=== PATIENT | female | born 1960 | race Caucasian/White ===

== ENCOUNTER 2020-04-01 12:54 | Outpatient (CLI) | payer OTHER, SELFPAY | END 2020-04-01 12:55 | disposition home or self-care (01) | LOC: ANHAUDIO 12:55 | PROVIDERS: PCP Internal Medicine Gastroenterology; Visit Provider Internal Medicine | DX: H90.3 Sensorineural hearing loss, bilateral (principal) | CPT/HCPCS: 92557; 92567 ==

== ENCOUNTER 2020-04-29 12:53 | Outpatient (RCR) | payer OTHER, SELFPAY | END 2020-04-29 23:59 | disposition home or self-care (01) | LOC: ANHAUDIO 12:53 | PROVIDERS: PCP Internal Medicine Gastroenterology; Visit Provider Internal Medicine Gastroenterology | DX: Z46.1 Encounter for fitting and adjustment of hearing aid (principal) | CPT/HCPCS: V5160; V5260 ==

== ENCOUNTER 2020-11-06 14:54 | Outpatient (CLI) | payer OTHER, SELFPAY ==
--- NOTE | ~2020-11-06 | DEXA_ITS ---
Bone Density Report Name: Selena Chen Age: 60 Sex: Female Ethnicity: White Date of : 1960 Indication: postmenopausal; prior fracture; hysterectomy; Referring Provider: CRISTALCLAUDIO Study: Bone densitometry was performed. Exam Date: November 06, 2020 Accession number: [id number] Bone Density: Region BMD T-score Z-score Classification AP Spine (L1-L4) 0.801 -2.2 -0.7 Osteopenia Femoral Neck (Left) 0.560 -2.6 -1.2 Osteoporosis Total Hip (Left) 0.669 -2.2 -1.2 Osteopenia Total Hip Bilateral Avg 0.671 -2.2 -1.2 Osteopenia Femoral Neck (Right) 0.622 -2.0 -0.7 Osteopenia Total Hip (Right) 0.672 -2.2 -1.1 Osteopenia World Health Organization criteria for BMD impression classify patients as: Normal (T-score at or above -1.0), Osteopenia (T-score between -1.0 and -2.5), or Osteoporosis (T-score at or below -2.5). 10-year Fracture Risk: FRAX not reported because: Some T-score for Spine Total or Hip Total or Femoral Neck at or below -2.5 Clinical Information Provided by Patient: Has had a low trauma fracture Smokes Has used the following medications: Vitamin D, Calcium Has the following medical conditions: Hysterectomy Patient maximum height was 63 Menopause Age: 48 No regular weight bearing exercise Drinks caffeinated beverages Onset of menses at age 11 Number of children 1 Impression: The patient has established osteoporosis, based on the Left Femoral Neck T-score and the existence of a prior fracture. The patient has risk factors, including: smoking, previous fracture. Discussion: HIGH RISK OF FRACTURE. BONE DENSITY IS UNDESIRABLY LOW AT ONE OR MORE SKELETAL SITES, CONSISTENT WITH POSTMENOPAUSAL OSTEOPOROSIS. This patient's lowest T-score, in a patient who has previously fractured, meets the World Health Organization's (WHO) criteria for severe osteoporosis. In untreated patients, the risk of osteoporotic fracture increases approximately two-fold for each 1.0 SD decrease in T-score. Low bone density is not the only risk factor for fracture; also consider factors such as patient's age, frailty or poor health, risk of falling, risk of injury, previous osteoporotic fracture, family history of osteoporosis, cigarette smoking, low body weight, etc. Not everyone with low bone mineral density has osteoporosis; osteomalacia and other metabolic bone disorders should also be considered. Patients who have osteoporosis should be evaluated for specific diseases and conditions (secondary causes) that may cause or contribute to bone loss. The [place] [employer] Endocrinologists (AACE) and National Osteoporosis Foundation (NOF) recommend pharmacologic intervention for all postmenopausal women whose T-score is in this range. The patient should follow a healthful lifestyle (good nutrition with adequate calcium and vitamin
== END 2020-11-06 14:55 | disposition home or self-care (01) ==
LOC: ANHIMG 14:55
PROVIDERS: PCP Internal Medicine Gastroenterology; Visit Provider Internal Medicine Gastroenterology
DX: M25.551 Pain in right hip (principal); M85.88 Other specified disorders of bone density and structure, other site; M81.0 Age-related osteoporosis without current pathological fracture; M85.852 Other specified disorders of bone density and structure, left thigh; M85.851 Other specified disorders of bone density and structure, right thigh
CPT/HCPCS: 77080

== ENCOUNTER 2020-12-12 09:18 | Outpatient (CLI) | payer OTHER, SELFPAY ==
--- NOTE | 2020-12-12 11:15 | NEURO_ITS ---
Impression: # Complains of generalized weakness and numbness. # No Carpal Tunnel Syndrome or ulnar neuropathy. # Bilateral peroneal neuropathy. # Generalized decreased motor unit potentials without fibs, fasciculation or myotonia. Nerve Conduction Studies Anti Sensory Summary Table Stim Site NR Peak (ms) P-T Amp (?V) Site1 Site2 Delta-P (ms) Dist (cm) Cheng (m/s) Left Median Anti Sensory (2-3nd Digit) Wrist 3.0 76.6 Wrist 2-3nd Digit 3.0 14.0 47 Wrist 3.0 69.4 Wrist 2-3nd Digit 3.0 14.0 47 Right Median Anti Sensory (2-3nd Digit) Wrist 3.1 50.5 Wrist 2-3nd Digit 3.1 14.0 45 Wrist 3.1 61.3 Wrist 2-3nd Digit 3.1 14.0 45 Left Radial Anti Sensory (Base 1st Digit) Wrist 2.5 12.5 Wrist Base 1st Digit 2.5 0.0 Right Radial Anti Sensory (Base 1st Digit) Wrist 3.0 11.3 Wrist Base 1st Digit 3.0 0.0 Left Sup Fibular Anti Sensory (Ant Lat Mall) 14 cm 2.7 13.0 14 cm Ant Lat Mall 2.7 16.0 59 Right Sup Fibular Anti Sensory (Ant Lat Mall) 14 cm 3.0 5.8 14 cm Ant Lat Mall 3.0 16.0 53 Left Sural Anti Sensory (Lat Mall) Calf 3.6 15.9 Calf Lat Mall 3.6 16.0 44 Right Sural Anti Sensory (Lat Mall) Calf 3.9 38.5 Calf Lat Mall 3.9 16.0 41 Left Ulnar Anti Sensory (5th Digit) Wrist 2.8 44.0 Wrist 5th Digit 2.8 14.0 50 Right Ulnar Anti Sensory (5th Digit) Wrist 2.8 52.1 Wrist 5th Digit 2.8 14.0 50 Motor Summary Table Stim Site NR Onset (ms) O-P Amp (mV) Site1 Site2 Delta-0 (ms) Dist (cm) Cheng (m/s) Left Median Motor (Abd Poll Brev) Wrist 3.2 3.0 Elbow Wrist 4.4 26.0 59 Elbow 7.6 3.1 Right Median Motor (Abd Poll Brev) Wrist 3.4 1.7 Elbow Wrist 4.3 26.0 60 Elbow 7.7 2.7 Left Peroneal Motor (Vastus Med) NO RESPONSE Ankle NR Popit Ankle 0.0 Popit 12.3 1.0 Right Peroneal Motor (Vastus Med) NO RESPONSE Ankle NR Popit Ankle 0.0 Popit 11.6 1.1 Left Tibial Motor (Abd Gaston Brev) Ankle 5.5 6.1 Knee Ankle 8.3 39.0 47 Knee 13.8 4.3 Right Tibial Motor (Abd Gaston Brev) Ankle 5.4 7.2 Knee Ankle 8.7 39.0 45 Knee 14.1 3.0 Left Ulnar Motor (Abd Dig Minimi) Wrist 2.3 6.1 A Elbow Wrist 4.6 28.0 61 A Elbow 6.9 5.8 Right Ulnar Motor (Abd Dig Minimi) Wrist 2.4 5.7 A Elbow Wrist 4.8 27.0 56 A Elbow 7.2 4.6 F Wave Studies NR F-Lat (ms) L-R F-Lat (ms) Left Median (Mrkrs) (Abd Poll Brev) 26.33 0.45 Right Median (Mrkrs) (Abd Poll Brev) 26.78 0.45 Left Peroneal (Mrkrs) (EDB) NO RESPONSE NR Right Peroneal (Mrkrs) (EDB) DISPERSED RESPONSE NR Left Tibial (Mrkrs) (Abd Hallucis) 55.01 0.84 Right Tibial (Mrkrs) (Abd Hallucis) 55.85 0.84 Left Ulnar (Mrkrs) (Abd Dig Min) 27.43 0.41 Right Ulnar (Mrkrs) (Abd Dig Min) 27.84 0.41 EMG Side Muscle Nerve Root Ins Act Fibs Amp Dur Recrt Comment Right 1stDorInt Ulnar C8-T1 Nml Nml Nml Nml Reduced Right Ext Indicis Radial (Post Int) C7-8 Nml Nml Nml Nml Reduced Right Ext Digitorum Radial (Post Int) C7-8 Nml Nml Nml Nml Reduced Right BrachioRad Radial C5-6 Nml Nml Nml Nml Reduced Right PronatorTeres Median C6-7 Nml Nml Nml Nml Reduced Right Abd Poll Brev Median C8-T1 Nml Nml Nml Nml Red
== END 2020-12-12 09:19 | disposition home or self-care (01) ==
PROVIDERS: PCP Internal Medicine Gastroenterology; Visit Provider Psychiatry & Neurology Neurology
DX: R20.2 Paresthesia of skin (principal)
CPT/HCPCS: 95886; 95913

== ENCOUNTER 2021-02-13 13:50 | Outpatient (CLI) | payer OTHER, SELFPAY ==
[2021-02-13 14:15] LABS: Hematocrit 36.8 % (37.0-47.0); Hemoglobin 12.1 g/dL (12.0-15.0); Mean Corpuscular HGB Conc 32.9 g/dl (32-36); Mean Corpuscular Hemoglobin 35.2 pg (26-34); Mean Platelet Volume 8.2 fl (7.4-10.4); Platelet Count Result 383 k/mm3 (150-375); Red Blood Count 3.44 M/mm3 (4.2-5.4); Red Cell Distribution Width 11.1 % (11.5-14.5); White Blood Count 7.4 K/mm3 (4.5-10.0)
[2021-02-13 14:26] LABS: Alanine Aminotransferase 12 U/L (4-35); Albumin Level 4.5 g/dL (3.5-5.1); Alkaline Phosphatase 89 U/L (38-126); Anion Gap 8 mmol/L (8-16); Aspartate Amino Transferase 35 U/L (14-36); Bilirubin,Total 0.2 mg/dL (0.2-1.3); Blood Urea Nitrogen 16 mg/dL (7-17); Calcium 9.7 mg/dL (8.4-10.2); Carbon Dioxide 29 mmol/L (22-30); Chloride 102 mmol/L (98-107); Estimated Glomerular Filt Rate > 60; Glucose 85 mg/dL (65-110); Potassium 4.7 mmol/L (3.4-5.0); Sodium 139 mmol/L (137-145)
== END 2021-02-13 13:51 | disposition home or self-care (01) ==
PROVIDERS: PCP Internal Medicine Gastroenterology; Visit Provider Psychiatry & Neurology Neurology
DX: G62.9 Polyneuropathy, unspecified (principal)
CPT/HCPCS: 36415; 80053; 85027

== ENCOUNTER 2021-02-27 13:00 | Outpatient (RCR) | payer OTHER, SELFPAY | END 2021-02-27 23:59 | disposition home or self-care (01) | LOC: ANHAUDIO 13:00 | PROVIDERS: PCP Internal Medicine Gastroenterology; Visit Provider Internal Medicine Gastroenterology | DX: Z46.1 Encounter for fitting and adjustment of hearing aid (principal) | CPT/HCPCS: 99199 ==

== ENCOUNTER 2021-03-06 02:19 | Day surgery (SDC) | payer OTHER, SELFPAY ==
[2021-02-20 14:57] VITALS: BMI 19.8
--- NOTE | 2021-03-05 14:55 | PM.HPGS ---
History of Present Illness History of Present Illness Consent: Risks, benefits, and alternatives have been discussed and questions answered. Patient agrees to proceed with procedure. Chief complaint: Constipation K59.00 Narrative: Selena Chen is a 60 year old female here for colon cancer screeningShe suffers from chronic constipation. She has abdominal pain unless her colon feels completely empty. Review of Systems Review of Systems: All systems reviewed & are unremarkable except as noted in HPI and below PMFSH Social History Social History Smoking packs per day: 2 Smoking cigarettes per day: 40.0 Years smoked: 50 Smoking pack-years: 100.00 Smoking status: Current every day smoker Tobacco type: cigarettes Alcohol intake: never Drinks per week: 2 Alcohol use details: BEER Substance use type: marijuana Living arrangements: with friend(s) Spiritual care concerns: No Meds Home Medications and Allergies Home Medications Medication Instructions Recorded Confirmed Type alendronate 70 mg tablet 70 mg PO WEEKLY 02/18/21 02/27/21 History baclofen 10 mg tablet 10 mg PO TID tablet 02/18/21 02/27/21 History buspirone 7.5 mg tablet 7.5 mg PO BID 02/18/21 02/27/21 History diclofenac potassium 50 mg tablet 50 mg PO BID 02/18/21 02/27/21 History dicyclomine 10 mg capsule 10 mg PO TID PRN 02/18/21 02/27/21 History famotidine 20 mg tablet 20 mg PO BID tablet 02/18/21 02/27/21 History trazodone 100 mg tablet 200 mg PO QHS PRN 02/18/21 02/27/21 History clorazepate dipotassium 7.5 mg 7.5 mg PO QHS #30 tablet MDD 02/24/21 02/27/21 Rx tablet insomnia pregabalin 100 mg capsule 100 mg PO BID #60 cap 03/03/21 Rx Allergies Allergy/AdvReac Type Severity Reaction Status Date / Time CYCLOBENZAPRINE HCL Allergy Mild Unknown Uncoded 03/06/21 06:56 Exam Resp: Auscultation: clear to auscultation bilaterally Cardio: Rate: regular rate Rhythm: regular rhythm GI: GI Palp: Yes Soft to palpation and No Tenderness to palpation present (GI) Assessment and Plan Assessment and plan (1) Colon cancer screening: Code(s): Z12.11 - Encounter for screening for malignant neoplasm of colon Status: Acute Assessment and Plan: Colonoscopy with possible biopsy or polypectomy or cautery or injection of substances.
[2021-03-06 06:59] VITALS: BP 100/61; PULSE 89; RESP 22; TEMP 36.1; O2SAT 93
[2021-03-06] MEDS: LACTATED RINGERS 1,000 ML 150 ML IV CONT (07:14)
--- NOTE | 2021-03-06 07:50 | WPDANESEPPF ---
Anes - Initial Pre Proc Eval Procedure: Operation Date: 03/06/21 08:00 Proposed Procedures p Colonoscopy - Cortes Randolph MD Date/Time: 03/06/21 07:50 Surgeon: Cortes Randolph MD Pre Op Diagnosis: Constipation K59.00 Patient Data Age: 60 Gender: F Height: 1.57 m Weight: 48.4 kg Last Vital Signs Temp 97.0 F L 03/06/21 06:59 Pulse 89 03/06/21 06:59 Resp 22 H 03/06/21 06:59 BP 100/61 03/06/21 06:59 Pulse Ox 93 03/06/21 06:59 Allergies Allergy/AdvReac Type Severity Reaction Status Date / Time CYCLOBENZAPRINE HCL Allergy Mild Unknown Uncoded 03/06/21 06:56 Home Medications Medication Instructions Recorded Confirmed Type alendronate 70 mg tablet 70 mg PO WEEKLY 02/18/21 02/27/21 History baclofen 10 mg tablet 10 mg PO TID tablet 02/18/21 02/27/21 History buspirone 7.5 mg tablet 7.5 mg PO BID 02/18/21 02/27/21 History diclofenac potassium 50 mg tablet 50 mg PO BID 02/18/21 02/27/21 History dicyclomine 10 mg capsule 10 mg PO TID PRN 02/18/21 02/27/21 History famotidine 20 mg tablet 20 mg PO BID tablet 02/18/21 02/27/21 History trazodone 100 mg tablet 200 mg PO QHS PRN 02/18/21 02/27/21 History clorazepate dipotassium 7.5 mg 7.5 mg PO QHS #30 tablet MDD 02/24/21 02/27/21 Rx tablet insomnia pregabalin 100 mg capsule 100 mg PO BID #60 cap 03/03/21 Rx Patient hx anesthesia problems: none Family hx anesthesia problems: none PMFSH Past Medical History Medical History (Updated 03/06/21 @ 07:43 by Yung Woodruff MD) Anxiety Arthritis Dementia GERD (gastroesophageal reflux disease) Social History Social History Smoking packs per day: 2 Smoking cigarettes per day: 40.0 Years smoked: 50 Smoking pack-years: 100.00 Smoking status: Current every day smoker Tobacco type: cigarettes Alcohol intake: never Drinks per week: 2 Alcohol use details: BEER Substance use type: marijuana Living arrangements: with friend(s) Spiritual care concerns: No Anes - Eval Final PreProcedure Day of Procedure 03/06/21 07:50 Patient weight: normal Heart: regular rate and rhythm Lungs: clear to auscultation Airway: Mallampati scale class II Neurological: alert and oriented Last oral intake: >/= 8 hours ASA classification: III Emergent: no Anesthetic plan: proceed Anesthesia type and monitoring: general GIVS and standard monitoring Informed Consent: The patient's anesthetic plan and its attendant risks and benefits were discussed with the patient/family/POA. Questions were solicited and answers provided to the satisfaction of the patient/family/POA.
[2021-03-06 08:23] VITALS: BP 105/57; BP 106/62; PULSE 85; RESP 16; RESP 30; O2SAT 89; O2SAT 98
[2021-03-06 08:33] VITALS: BP 122/71; PULSE 89; RESP 20; O2SAT 93
--- NOTE | 2021-03-06 12:53 | SUR.PHASEII ---
0845 pt states having a panic attack after procedure and request medication from anesthesiologist-dr. de la rosa refused request and dialog was used to calm patient---
== END 2021-03-06 09:05 | disposition home or self-care (01) ==
PROVIDERS: PCP Internal Medicine Gastroenterology; Visit Provider Internal Medicine Gastroenterology
PROC: 0DJD8ZZ Inspection of Lower Intestinal Tract, Via Natural or Artificial Opening Endoscopic (ICD-10-PCS; CPT 45378; principal; 2021-03-06 08:00)
DX: Z12.11 Encounter for screening for malignant neoplasm of colon (principal); K59.09 Other constipation; F17.210 Nicotine dependence, cigarettes, uncomplicated
CPT/HCPCS: 45378; J2704; J7120

== ENCOUNTER 2021-03-08 10:36 | Inpatient (IN) | payer OTHER, SELFPAY ==
[2021-03-08] VITALS (7 sets, daily range): BP systolic 108–160; BP diastolic 76–99; PULSE 72–91; RESP 16–24; TEMP 36.4–37.6; O2SAT 91–100; BMI 19.5
--- NOTE | ~2021-03-08 | XR_ITS ---
EXAMINATION: XR foot LT min 3V DATE: 03/08/2021 11:17 INDICATION: Left foot trauma TECHNIQUE: Dorsoplantar, two oblique and lateral views of the left foot were obtained. COMPARISON: 12/17/2009 FINDINGS: Alignment is normal. Nondisplaced fractures at the distal necks of the third and fourth metatarsals. Alignment remains essentially anatomic. Chronic subtle flattening of the head of the second metatarsa l consistent with osteonecrosis/Freiberg's infraction. Mild polyarticular osteoarthritis at the 50 ta rsal metatarsal, metatarsophalangeal and interphalangeal joints. Small heterotopic ossicle near the t ip of the lateral malleolus likely sequela of chronic lateral ankle sprain. Moderate-sized Achilles c alcaneal spur. IMPRESSION: 1. Nondisplaced extra articular fractures at the necks of the right third and fourth metatarsals. Reviewed, dictated and finalized at location A. IMPRESSION: 1. Nondisplaced extra articular fractures at the necks of the right third and f ourth metatarsals.
--- NOTE | ~2021-03-08 | CT_ITS ---
EXAMINATION: CTA chest PE protocol DATE: 03/08/2021 12:00 INDICATION: Chest pain with shortness of breath and syncope. TECHNIQUE: Computed tomography (CT) pulmonary angiogram of the chest was performed with 100 mL Omnipa que-350 intravenous contrast. Additional 3D reconstructions utilizing coronal maximum intensity proje ction (MIP) were performed. Automated exposure control and iterative reconstruction technique were em ployed. The dose-length product was 143.82 mGy-cm. COMPARISON: None FINDINGS: Excellent contrast opacification of the pulmonary arteries. There is mild streak artifact from dense contrast in the superior vena cava and right atrium. Mild scattered respiratory motion artifact which does not significantly limit evaluation. No pulmonary motion. Moderate emphysema. Diffuse septal yan e thickening and patchy groundglass opacities throughout both lungs. Calcified nodule at the azygos e sophageal recess of the right lower lobe consistent with old granulomatous disease. No pleural effusi on or pneumothorax. Heart size is normal. No pericardial effusion. Atherosclerotic coronary artery ca lcification. Thoracic aorta is normal in caliber with no dissection. Enlargement of the central pulmo nary arteries consistent with pulmonary arterial hypertension. Likely reactive mild mediastinal and b ilateral hilar lymphadenopathy, right greater than left. Visualized upper abdomen is unremarkable. Ch ronic mild anterior wedging at T12 and chronic mild superior endplate compression fractures at T3 and T4. Mild to moderate anterior wedging at T7, T8 and T10, each with sclerosis underlying the superior endplate suggesting relatively recent compression fractures. IMPRESSION: 1. No pulmonary aneurysm. 2. Diffuse bilateral lung disease throughout both lungs with appearance favoring pulmonary edema over pneumonia with differential including COVID pneumonia. 3. Moderate emphysema. 4. Enlargement of the central pulmonary arteries consistent with pulmonary arterial hypertension. 5. Likely reactive mediastinal and bilateral hilar lymphadenopathy. 6. Relatively recent-appearing T7, T8 and T10 compression fractures with mild to moderate anterior ve rtebral body height loss. Reviewed, dictated and finalized at location A. IMPRESSION: 1. No pulmonary aneurysm. 2. Diffuse bilateral lung disease throughout both lungs with appearance favorin g pulmonary edema over pneumonia with differential including COVID pneumonia. 3. Moderate emphysema. 4. Enlargement of the central pulmonary arteries consistent with pulmonary ekaterina rial hypertension. 5. Likely reactive mediastinal and bilateral hilar lymphadenopathy. 6. Relatively recent-appearing T7, T8 and T10 compression fractures with mild t o moderate anterior vertebral body height loss.
--- NOTE | ~2021-03-08 | CT_ITS ---
EXAMINATION: CT brain wo con DATE: 03/10/2021 19:06 INDICATION: Confusion. TECHNIQUE: Computed tomography (CT) of the head was performed without intravenous contrast. The mA wa s adjusted according to patient size. Iterative reconstruction technique was employed. The dose-lengt h product was 605.33 mGy-cm. COMPARISON: Brain MRI 06/07/2019 FINDINGS: There is no intracranial hemorrhage, acute infarction, or abnormal intracranial mass lesion . There are scattered areas of low attenuation in the cerebral white matter, which is within normal l imits for the patient's age. The ventricles are normal in size. The orbits are normal. There is mild mucosal thickening in the paranasal sinuses. The mastoid air cells are normal. IMPRESSION: 1. Normal aging brain. Reviewed, dictated and finalized at location A. IMPRESSION: 1. Normal aging brain.
--- NOTE | ~2021-03-08 | US_ITS ---
EXAMINATION: US thyroid EXAM DATE: 03/11/2021 14:27 INDICATION: Neck pain. TECHNIQUE: Multiple grayscale and Doppler images of the thyroid were obtained (by a technologist who performed the scan) and subsequently reviewed. Individual nodules and recommendations may be reporte d in accordance with TI-RADS system as designated by the 2017 ACR White Paper TI-RADS committee. The re is no prior study for comparison. FINDINGS: The right thyroid lobe measures 1.2 x 4.6 x 1.3 cm, the left measuring 1.3 x 4.0 x 1.0 cm. There is h omogeneous thyroid echogenicity. No suspicious focal nodules identified. No other abnormality. IMPRESSION: 1. Unremarkable thyroid ultrasound exam. Reviewed, dictated and finalized at location A.
--- NOTE | ~2021-03-08 | MR_ITS ---
EXAMINATION: MR brain/brain stem wo con DATE: 03/11/2021 08:51 INDICATION: Altered mental status. Unresponsive. TECHNIQUE: Magnetic resonance imaging (MRI) of the brain and brainstem was performed without intraven ous contrast. Sequences included sagittal and axial T1-weighted FSE, axial diffusion-weighted FS EPI, axial T2*-weighted GRE, axial T2-weighted FLAIR Propeller, and axial T2-weighted Propeller. Apparent diffusion coefficient (ADC) maps were created. COMPARISON: Head CT 03/10/2021, brain MRI 06/07/2019 FINDINGS: There are scattered areas of nonspecific increased T2-weighted signal intensity in the cere bral white matter. There is no intracranial hemorrhage, acute infarction, or abnormal intracranial ma ss lesion. The ventricles are normal in size. There is mild mucosal thickening IMPRESSION: 1. Mild nonspecific cerebral white matter disease, which likely represents chronic small vessel ische narcisa disease, worsened from 06/07/2019. Reviewed, dictated and finalized at location A. IMPRESSION: 1. Mild nonspecific cerebral white matter disease, which likely represents oncology technician nir small vessel ischemic disease, worsened from 06/07/2019.
--- NOTE | 2021-03-08 10:42 | ECG_ITS ---
Measurements Intervals [place] Rate: 88 P: 60 [place]: 152 QRS: 43 QRSD: 90 T: 47 QT: 339 QTc: 411 Interpretive Statements SINUS RHYTHM BASELINE WANDER- I, III, AVL, V1, V3 NORMAL ECG Electronically Signed On 03-08-2021 17:13:41 CDT by Abel Null D.O.
[2021-03-08] MEDS: SODIUM CHLORIDE 0.9% IV 1,000 ML 999 ML IV CONT (10:58)
[2021-03-08 10:59] LABS: Basophils Absolute Auto 0.1 K/mm3 (0.0-0.1); Basophils Percent Auto 0.7 % (0.2-1.2); Eosinophils Absolute Auto 0.4 K/mm3 (0-0.3); Eosinophils Percent Auto 3.5 % (0-4.4); Hematocrit 36.3 % (37.0-47.0); Hemoglobin 12.2 g/dL (12.0-15.0); Immature Granulocyte Absolute 0.11 K/mm3 (0.00-0.031); Lymphocytes Absolute Auto 1.55 K/mm3 (0.9-3.2); Lymphocytes Percent Auto 14.6 % (18.3-44.2); Mean Corpuscular HGB Conc 33.6 g/dl (32-36); Mean Corpuscular Hemoglobin 35.5 pg (26-34); Mean Corpuscular Volume 105.5 fl (80-100); Mean Platelet Volume 9.4 fl (7.4-10.4); Monocytes Absolute Auto 0.5 K/mm3 (0.1-0.6); Monocytes Percent Auto 4.8 % (2.6-8.5); Neutrophils Percent Auto 75.4 % (45.5-73.1); Platelet Count Result 399 k/mm3 (150-375); Red Blood Count 3.44 M/mm3 (4.2-5.4); Red Cell Distribution Width 11.3 % (11.5-14.5); White Blood Count 10.6 K/mm3 (4.5-10.0)
[2021-03-08 11:05] LABS: Anion Gap 9 mmol/L (8-16); Blood Urea Nitrogen 15 mg/dL (7-17); Calcium 9.5 mg/dL (8.4-10.2); Carbon Dioxide 24 mmol/L (22-30); Chloride 105 mmol/L (98-107); Estimated CRCL calculation 48 ml/min; Estimated Glomerular Filt Rate > 60; Glucose 111 mg/dL (65-110); Potassium 4.5 mmol/L (3.4-5.0); Sodium 138 mmol/L (137-145)
[2021-03-08 11:12] LABS: INR 0.9; Partial Thromboplastin Time 29.7 SECONDS (22.3-36.8); Prothrombin Time 12.4 Seconds (11.1-14.7)
[2021-03-08 11:34] LABS: NT Pro B Type Natriuretic Pept 1620 pg/mL (5-100)
[2021-03-08 14:16] LABS: EDCOVIDSCREEN Negative (Negative)
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
--- NOTE | 2021-03-08 15:15 | PC.NURSE ---
pt up at nurses station stating i want to fucking leave . dr kern and myself at bedside to speak with patient. pt anxious stating we arent spending enough time with her and that she wants to go home. made aware of plan of care for pt. discussed risks of signing ama. pt o2 sat 77% ra. agreeable to admission at this time.
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
[2021-03-08] MEDS: MORPHINE SULFATE (*CRX) 4 MG/ML INJ 2 MG IV PUSH (17:04)
--- NOTE | 2021-03-08 19:08 | ADMGEN ---
This patient, Selena Chen, was admitted to [facility] Surg Room [id number]. Report given per VLADIMIR Mckinney. Patient/family oriented to hospital policies and general routines including ID bracelet, bed and alarms, visiting hours, pain management, procedures, bathroom and other care routines, personal items, smoking policy, room service/diet, and visiting hours. Information on how to activate the Rapid Response Team has been discussed. Patient/Family are encouraged to report perceived risks to care and to ask questions if they do not understand what they are told or what they should do.
[2021-03-08] MEDS: CLORAZEPATE DIPOTASSIUM (*CRX) 7.5 MG TABLET PO (22:11)
[2021-03-08] MEDS: ACETAMINOPHEN 325 MG TABLET 650 MG PO (22:11)
[2021-03-08] MEDS: PREGABALIN (*CRX) 50 MG CAPSULE 100 MG PO (22:11)
[2021-03-08] MEDS: BACLOFEN 10 MG TABLET PO (22:12)
[2021-03-08] MEDS: traZODone HCL 50 MG TABLET 200 MG PO (22:12)
[2021-03-09] VITALS (11 sets, daily range): BP systolic 90–167; BP diastolic 50–84; PULSE 71–88; RESP 12–22; TEMP 36.4–37.8; O2SAT 93–99
[2021-03-09] MEDS: FUROSEMIDE INJ 40 MG/4 ML VIAL 20 MG IV PUSH (00:07)
[2021-03-09] MEDS: oxyCODONE HCL (*CRX) 5 MG TAB IR PO ×3 (02:55→14:49)
[2021-03-09] MEDS: ACETAMINOPHEN 325 MG TABLET 650 MG PO ×2 (02:58→10:06)
[2021-03-09 07:09] LABS: Hematocrit 33.4 % (37.0-47.0); Hemoglobin 10.9 g/dL (12.0-15.0); Mean Corpuscular HGB Conc 32.6 g/dl (32-36); Mean Corpuscular Hemoglobin 34.5 pg (26-34); Mean Corpuscular Volume 105.7 fl (80-100); Mean Platelet Volume 9.3 fl (7.4-10.4); Platelet Count Result 402 k/mm3 (150-375); Red Blood Count 3.16 M/mm3 (4.2-5.4); White Blood Count 10.4 K/mm3 (4.5-10.0)
[2021-03-09 07:15] LABS: Alanine Aminotransferase 21 U/L (4-35); Albumin Level 3.8 g/dL (3.5-5.1); Alkaline Phosphatase 267 U/L (38-126); Anion Gap 5 mmol/L (8-16); Aspartate Amino Transferase 30 U/L (14-36); Bilirubin,Total 0.4 mg/dL (0.2-1.3); Blood Urea Nitrogen 12 mg/dL (7-17); Carbon Dioxide 26 mmol/L (22-30); Chloride 104 mmol/L (98-107); Estimated CRCL calculation 55 ml/min; Estimated Glomerular Filt Rate > 60; Glucose 93 mg/dL (65-110); Magnesium 1.9 mg/dL (1.6-2.3); Potassium 4.4 mmol/L (3.4-5.0); Sodium 135 mmol/L (137-145)
[2021-03-09 08:13] LABS: Iron 28 ug/dL (37-170)
[2021-03-09] MEDS: DICLOFENAC SOD 25 MG TABLET.EC 50 MG PO ×2 (08:18→17:16)
[2021-03-09] MEDS: ENOXAPARIN 30 MG/0.3 ML SYRINGE SUB-Q (08:18)
[2021-03-09] MEDS: FAMOTIDINE 20 MG TABLET PO ×2 (08:18→17:17)
[2021-03-09] MEDS: busPIRone HCL 2.5 MG TABLET PO ×2 (08:18→21:38)
[2021-03-09] MEDS: BACLOFEN 10 MG TABLET PO ×3 (08:18→17:16)
[2021-03-09] MEDS: busPIRone HCL 5 MG TABLET PO ×2 (08:18→21:38)
[2021-03-09 08:22] LABS: Folic Acid 8.3 ng/mL (2.76->20); Vitamin B12 > 1000.0 pg/mL (239-931)
[2021-03-09] MEDS: PREGABALIN (*CRX) 50 MG CAPSULE 100 MG PO ×2 (10:06→17:20)
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
[2021-03-09] MEDS: BISACODYL 5 MG TABLET EC PO (12:18)
[2021-03-09] MEDS: NICOTINE (*PBKC) 21 MG PATCH 1 PATCH TRANSDERM (14:50)
[2021-03-09 17:49] LABS: Glucose Point of Care 116 mg/dl (65-105)
[2021-03-09] MEDS: ACETAMINOPHEN 500 MG TABLET 1000 MG PO (21:37)
[2021-03-09] MEDS: oxyCODONE HCL (*CRX) 2.5 MG TAB IR PO (21:37)
[2021-03-09] MEDS: CLORAZEPATE DIPOTASSIUM (*CRX) 7.5 MG TABLET PO (21:37)
[2021-03-09] MEDS: SENNOSIDES 8.6 MG TABLET PO (21:38)
[2021-03-09] MEDS: traZODone HCL 50 MG TABLET 200 MG PO (21:38)
[2021-03-10] VITALS (10 sets, daily range): BP systolic 88–117; BP diastolic 50–70; PULSE 74–83; RESP 18–20; TEMP 35.8–37.1; O2SAT 90–95
[2021-03-10 03:44] LABS: SARS-CoV-2 RNA PCR Negative
[2021-03-10] MEDS: ACETAMINOPHEN 500 MG TABLET 1000 MG PO ×3 (05:25→21:30)
[2021-03-10] MEDS: PREGABALIN (*CRX) 50 MG CAPSULE 100 MG PO ×2 (09:05→17:15)
[2021-03-10] MEDS: oxyCODONE HCL (*CRX) 2.5 MG TAB IR PO (09:05)
[2021-03-10] MEDS: busPIRone HCL 2.5 MG TABLET PO (09:07)
[2021-03-10] MEDS: BACLOFEN 10 MG TABLET PO ×3 (09:07→17:06)
[2021-03-10] MEDS: DICLOFENAC SOD 25 MG TABLET.EC 50 MG PO ×2 (09:07→17:05)
[2021-03-10] MEDS: busPIRone HCL 5 MG TABLET PO (09:08)
[2021-03-10] MEDS: FAMOTIDINE 20 MG TABLET PO ×2 (09:08→17:05)
[2021-03-10] MEDS: NICOTINE (*PBKC) 21 MG PATCH 1 PATCH TRANSDERM (09:08)
[2021-03-10] MEDS: ENOXAPARIN 30 MG/0.3 ML SYRINGE SUB-Q (09:08)
[2021-03-10 10:12] LABS: Hematocrit 38.3 % (37.0-47.0); Hemoglobin 12.6 g/dL (12.0-15.0); Mean Corpuscular HGB Conc 32.9 g/dl (32-36); Mean Corpuscular Hemoglobin 34.5 pg (26-34); Mean Corpuscular Volume 104.9 fl (80-100); Mean Platelet Volume 9.5 fl (7.4-10.4); Platelet Count Result 522 k/mm3 (150-375); Red Blood Count 3.65 M/mm3 (4.2-5.4); Red Cell Distribution Width 10.9 % (11.5-14.5); White Blood Count 10.3 K/mm3 (4.5-10.0)
[2021-03-10 10:22] LABS: Anion Gap 7 mmol/L (8-16); Blood Urea Nitrogen 13 mg/dL (7-17); Calcium 9.8 mg/dL (8.4-10.2); Carbon Dioxide 31 mmol/L (22-30); Chloride 99 mmol/L (98-107); Estimated CRCL calculation 48 ml/min; Estimated Glomerular Filt Rate > 60; Glucose 113 mg/dL (65-110); Potassium 4.4 mmol/L (3.4-5.0); Sodium 137 mmol/L (137-145)
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
[2021-03-10 18:40] LABS: Glucose Point of Care 232 mg/dl (65-105)
--- NOTE | 2021-03-10 19:40 | PC.NURSE ---
At 1215, PT & OT were working with pt when they yelled that pt was unresponsive and to call a rapid. Pt was quickly awakened with painful stimuli, returned to her bed, at bedside who ordered 5mg zyprexa. Pt BP was soft so I held zyprexa and the lasix he also ordered. Pt had no further problems. At 1840, pt appeared to go unresponsive again. Multiple painful stimuli tried. Pt not responding. Vitals solid at 115/63, heart rate 83, pulse ox 97 on room air, resps of 16. Blood sugar at 232. Called rapid response again. Called Emanuel, but no response initially. Called Gregory as he had also responded to first response. Pt had multiple attempts of arousing, but eyes would continue to roll back in head. Pt finally aroused at 1856. Stat CT brain c/o contrast ordered, along with cancellation of all anti-anxiety and pain medications. Pt to be transferred to IMU 206. Pt returned from CT, A/O x 4 and stated she had called her boyfriend with an update. Gave report to night RN to work on transfer
--- NOTE | 2021-03-10 20:50 | PC.NURSE ---
Report given to CARMENZA GILBERT and patient transfered to IMU, all belongings inplace, tele monitor on, alert and orientated at this time.
--- NOTE | 2021-03-10 21:14 | PC.NURSE ---
Report received at 1949 from VLADIMIR Flores at 1949. All questions answered and plan of care reviewed. Patient to go to IMU bed 206 bed 2.
--- NOTE | 2021-03-10 21:15 | PC.NURSE ---
Patient arrived to IMU bed 206-2 at 2100. Patient transferred by bed. All belongings brought with patient to room. Patient oriented to policies and procedures.
[2021-03-10] MEDS: SENNOSIDES 8.6 MG TABLET PO (21:30)
[2021-03-10] MEDS: DOCUSATE SODIUM 100 MG CAPSULE PO (21:30)
[2021-03-10] MEDS: CLORAZEPATE DIPOTASSIUM (*CRX) 3.75 MG TABLET 7.5 MG PO (22:00)
--- NOTE | 2021-03-10 22:40 | ECHO_ITS ---
Patient Info Name: Selena Chen Age: 60 years : 1960 Gender: Female Ht: 62 in Wt: 106 lbs BSA: 1.45 m2 HR: 95 bpm BP: 111 / 70 mmHg Exam Date: 03/10/2021 10:54 AM Exam Location: [facility] Patient Status: Outpatient Admit Date: 03/08/2021 Staff Ordering Physician: Mitra Brush PA-C Cardiac Care Unit Nurse: Tom Liu RDCS, RT Attending Provider: Colby Holliday MD Referring Physician: Trudi CASTILLO; Exam Type: CA echo doppler color flow Study Info Indications J81.0 - Acute pulmonary edema Complete two-dimensional, color flow and Doppler transthoracic echocardiogram is performed. Strain analysis performed. Summary 1. Complete two-dimensional, color flow and Doppler transthoracic echocardiogram is performed. 2. Left ventricular chamber dimension is normal. 3. Left ventricular systolic function is normal, estimated at 60-65%. 4. The left ventricular diastolic function is grade I diastolic dysfunction. 5. E/e' 5 is not elevated. 6. Global longitudinal strain is abnormal at -15.3%. 7. There is moderate aortic valve sclerosis. 8. There is mild aortic valve regurgitation. 9. There is trace tricuspid valve regurgitation. Left Ventricle E/e' 5 is not elevated. Global longitudinal strain is abnormal at -15.3%. Left ventricular chamber dimension is normal. Left ventricular systolic function is normal, estimated at 60-65%. The left ventricular diastolic function is grade I diastolic dysfunction. Right Ventricle Right ventricular systolic function is normal and with normal TAPSE 2.0 cm.. Right ventricular chamber dimension is normal. Left Atria Left atrial chamber dimension is normal. Right Atria Right atrial chamber dimension is normal. Aortic Valve The aortic valve is trileaflet. There is moderate aortic valve sclerosis. There is no aortic valve stenosis. There is mild aortic valve regurgitation. Pulmonic Valve There is no pulmonic regurgitation. Mitral Valve There is no mitral valve stenosis. There is no mitral valve regurgitation. Tricuspid Valve There is trace tricuspid valve regurgitation. RVSP is not calculated due to an inadequate TR jet. Pericardium/Pleural There is no pericardial effusion. Inferior Vena Cava Normal inferior vena cava with >50% collapse upon inspiration consistent with normal right atrial pressure, 5 mmHg. Aorta The aortic root size at the sinus of Valsalva is normal. Left Ventricular Outflow Tract Name Value Normal LVOT 2D LVOT Diameter 2.0 cm LVOT Doppler LVOT Peak Gradient 3 mmHg LVOT Mean Gradient 2 mmHg LVOT VTI 15 cm LVOT VTI/AV VTI Ratio 0.8 LVOT Stroke Volume 45 ml LVOT CO 3.2 l/min LVOT CI 2.2 l/min/m2 Mitral Valve Name Value Normal
[2021-03-11] VITALS (16 sets, daily range): BP systolic 106–131; BP diastolic 48–80; PULSE 66–91; RESP 18–22; TEMP 36.1–36.7; O2SAT 95–97
[2021-03-11] MEDS: HALOPERIDOL LACTATE 5 MG/ML VIAL IM (00:22)
[2021-03-11] MEDS: LORazepam INJ (*CRX) 2 MG/ML VIAL 1 MG IM (00:59)
[2021-03-11] MEDS: diphenhydrAMINE HCl INJ 50 MG/ML VIAL 25 MG IV PUSH (01:00)
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
[2021-03-11] MEDS: ACETAMINOPHEN 500 MG TABLET 1000 MG PO ×3 (05:16→21:09)
[2021-03-11 06:04] LABS: Hematocrit 34.9 % (37.0-47.0); Hemoglobin 11.4 g/dL (12.0-15.0); Mean Corpuscular HGB Conc 32.7 g/dl (32-36); Mean Corpuscular Volume 104.2 fl (80-100); Mean Platelet Volume 9.4 fl (7.4-10.4); Platelet Count Result 485 k/mm3 (150-375); Red Blood Count 3.35 M/mm3 (4.2-5.4); Red Cell Distribution Width 10.7 % (11.5-14.5); White Blood Count 8.8 K/mm3 (4.5-10.0)
[2021-03-11 06:27] LABS: Anion Gap 7 mmol/L (8-16); Blood Urea Nitrogen 14 mg/dL (7-17); Calcium 9.3 mg/dL (8.4-10.2); Carbon Dioxide 28 mmol/L (22-30); Chloride 102 mmol/L (98-107); Estimated CRCL calculation 48 ml/min; Estimated Glomerular Filt Rate > 60; Glucose 112 mg/dL (65-110); Sodium 137 mmol/L (137-145)
[2021-03-11] MEDS: ENOXAPARIN 30 MG/0.3 ML SYRINGE SUB-Q (09:48)
[2021-03-11] MEDS: DICLOFENAC SOD 25 MG TABLET.EC 50 MG PO ×2 (09:49→17:35)
[2021-03-11] MEDS: NICOTINE (*PBKC) 21 MG PATCH 1 PATCH TRANSDERM (09:50)
[2021-03-11] MEDS: FUROSEMIDE INJ 40 MG/4 ML VIAL IV PUSH (09:50)
[2021-03-11] MEDS: DOCUSATE SODIUM 100 MG CAPSULE PO ×2 (09:50→21:08)
[2021-03-11] MEDS: FAMOTIDINE 20 MG TABLET PO ×2 (09:50→17:35)
[2021-03-11] MEDS: MORPHINE SULFATE (*CRX) 15 MG TAB IR PO ×2 (11:45→17:33)
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
--- NOTE | 2021-03-11 13:26 | PCOTNOTE ---
Addendum entered by Ayala Canales, OT 03/11/21 14:35: Pt. was re-assessed for OT after medical status change. Continue with plan of care as previously established. Original Note: Pt. classified as code purple in last 24 hours. Followed up with nurse regarding status, nurse reports pt. has returned to what she believes was state prior to change and should be safe to see for PT/OT at this time. Will follow-up with any changes.
[2021-03-11] MEDS: GABAPENTIN 300 MG CAPSULE PO ×2 (14:59→18:48)
[2021-03-11] MEDS: ARTIFICIAL TEARS OPHTH SOLN 15 ML BOTTLE 1 DROP EACH EYE (15:00)
[2021-03-11] MEDS: CLORAZEPATE DIPOTASSIUM (*CRX) 3.75 MG TABLET 7.5 MG PO (21:08)
[2021-03-11] MEDS: SENNOSIDES 8.6 MG TABLET PO (21:09)
[2021-03-12] VITALS (14 sets, daily range): BP systolic 92–130; BP diastolic 55–74; PULSE 65–93; RESP 18–20; TEMP 36.4–36.8; O2SAT 96–100
[2021-03-12] MEDS: MORPHINE SULFATE (*CRX) 15 MG TAB IR PO ×2 (03:01→09:53)
[2021-03-12 05:41] LABS: Alanine Aminotransferase 15 U/L (4-35); Alkaline Phosphatase 231 U/L (38-126); Anion Gap 6 mmol/L (8-16); Aspartate Amino Transferase 35 U/L (14-36); Bilirubin,Total 0.3 mg/dL (0.2-1.3); Blood Urea Nitrogen 20 mg/dL (7-17); Calcium 9.6 mg/dL (8.4-10.2); Carbon Dioxide 28 mmol/L (22-30); Chloride 99 mmol/L (98-107); Estimated CRCL calculation 36 ml/min; Estimated Glomerular Filt Rate 50; Glucose 102 mg/dL (65-110); Phosphorus 5.4 mg/dL (2.5-4.5); Potassium 4.7 mmol/L (3.4-5.0); Sodium 133 mmol/L (137-145)
[2021-03-12] MEDS: ACETAMINOPHEN 500 MG TABLET 1000 MG PO ×3 (05:57→21:20)
[2021-03-12 06:07] LABS: Basophils Absolute Auto 0.1 K/mm3 (0.0-0.1); Eosinophils Absolute Auto 0.5 K/mm3 (0-0.3); Eosinophils Percent Auto 5.6 % (0-4.4); Hematocrit 36.6 % (37.0-47.0); Hemoglobin 11.9 g/dL (12.0-15.0); Immature Granulocyte Absolute 0.32 K/mm3 (0.00-0.031); Immature Granulocyte Percent A 3.7 % (0-0.5); Lymphocytes Absolute Auto 2.34 K/mm3 (0.9-3.2); Lymphocytes Percent Auto 27.1 % (18.3-44.2); Mean Corpuscular HGB Conc 32.5 g/dl (32-36); Mean Corpuscular Hemoglobin 34.8 pg (26-34); Mean Platelet Volume 9.4 fl (7.4-10.4); Monocytes Absolute Auto 0.6 K/mm3 (0.1-0.6); Monocytes Percent Auto 6.5 % (2.6-8.5); Neutrophils Absolute Auto 4.8 K/mm3 (1.3-6.7); Neutrophils Percent Auto 56.1 % (45.5-73.1); Platelet Count Result 545 k/mm3 (150-375); Red Blood Count 3.42 M/mm3 (4.2-5.4); Red Cell Distribution Width 10.8 % (11.5-14.5); White Blood Count 8.6 K/mm3 (4.5-10.0)
[2021-03-12] MEDS: NICOTINE (*PBKC) 21 MG PATCH 1 PATCH TRANSDERM (08:36)
[2021-03-12] MEDS: FAMOTIDINE 20 MG TABLET PO ×2 (08:36→18:02)
[2021-03-12] MEDS: GABAPENTIN 300 MG CAPSULE PO ×3 (08:36→18:02)
[2021-03-12] MEDS: DICLOFENAC SOD 25 MG TABLET.EC 50 MG PO ×2 (08:36→18:01)
[2021-03-12] MEDS: ARTIFICIAL TEARS OPHTH SOLN 15 ML BOTTLE 1 DROP EACH EYE ×2 (08:36→21:18)
[2021-03-12] MEDS: DOCUSATE SODIUM 100 MG CAPSULE PO ×2 (08:36→21:19)
[2021-03-12] MEDS: FUROSEMIDE INJ 40 MG/4 ML VIAL IV PUSH (08:36)
[2021-03-12] MEDS: ENOXAPARIN 30 MG/0.3 ML SYRINGE SUB-Q (08:36)
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
--- NOTE | 2021-03-12 15:05 | WPDNEUROPN ---
Progress Note: A&P Additional Plan treatment will be continued as such Review of Systems Review of Systems: All systems reviewed & are unremarkable except as noted in HPI and below Exam Narrative: remains awake alert cooperative in no obvious acute distress complaining of the pain in her back where the wedge compression fracture of thoracic vertebra has been documented along with the T7 to treat 10 compression fracture but neurologically she remains awake alert cooperative his speech nor dysphasic no dysarthric cranial examination normal motor and sensory examination of the lower extremities normal reflexes symmetrical plantars downgoing Objective Data Vital Signs Vital Signs: Vital Signs - 24 hr 03/11/21 16:00 03/11/21 17:02 03/11/21 18:00 Temperature 36.1 C L Pulse Rate 80 72 83 Respiratory Rate 22 H Blood Pressure 131/70 Pulse Oximetry 95 03/11/21 20:00 03/11/21 21:32 03/11/21 23:43 Temperature 36.6 C 36.4 C Pulse Rate 68 70 91 Respiratory Rate 18 20 Blood Pressure 117/67 106/48 L Pulse Oximetry 97 97 03/12/21 00:00 03/12/21 02:00 03/12/21 04:00 Temperature 36.4 C Pulse Rate 68 72 65 Respiratory Rate 20 18 Blood Pressure 92/64 L Pulse Oximetry 97 99 03/12/21 06:00 03/12/21 08:00 03/12/21 08:23 Temperature 36.8 C Pulse Rate 72 81 68 Respiratory Rate 20 Blood Pressure 105/61 Pulse Oximetry 96 03/12/21 10:00 03/12/21 12:00 03/12/21 12:29 Temperature 36.4 C L Pulse Rate 70 68 74 Respiratory Rate 18 Blood Pressure 108/71 Pulse Oximetry 100 03/12/21 14:00 Temperature Pulse Rate 82 Respiratory Rate Blood Pressure Pulse Oximetry Intake/Output Intake/Output: Intake & Output 03/09/21 03/10/21 03/11/21 03/12/21 23:59 23:59 23:59 23:59 Intake Total 1630 1030 702 420 Output Total 1300 1225 Balance 1630 1035 -598 -805 Meds/Results Medications: Active Medications Generic Name Dose Route Start Last Admin Trade Name Freq PRN Reason Stop Dose Admin Acetaminophen 1,000 mg 03/09/21 22:00 03/12/21 14:04 Acetaminophen 500 Mg Tablet PO 1,000 mg Q8HR SILVINA Administration Albuterol 2 puff 03/08/21 22:40 Albuterol Sulfate (*Sp) Aerosol 1 Puff INHALATION QIDRT PRN Shortness Of Breath Artificial Tears 1 drop 03/11/21 13:37 03/12/21 08:36 Artificial Tears Ophth Soln 15 Ml Bottle EACH EYE 1 drop QID PRN Administration Dry Eye(s) Clorazepate Dipotassium 7.5 mg 03/10/21 21:00 03/11/21 21:08 Clorazepate Dipotassium (*Crx) 3.75 Mg Tablet PO 7.5 mg HS SILVINA Administration Diclofenac Sodium 50 mg 03/09/21 08:00 03/12/21 08:36 Diclofenac Sod 25 Mg Tablet.Ec PO 50 mg BIDWM SILVINA Administration Dicyclomine HCl 10 mg 03/08/21 21:16 Dicyclomine Hcl 10 Mg Capsule PO TID PRN Gastrointestinal Spasms Or Central Supply Worker Docusate Sodium 100 mg 03/10/21 21:00 03/12/21 08:36 Docusate Sodium 100 Mg Capsule PO 100 mg Q12HR SILVINA Administration Enoxaparin Sodium 30 mg 03/09/21 09:00 03/12/21 08:36 Enoxaparin 30 Mg/0.3 Ml Syringe SUB-Q 30 mg DAILY SILVINA Administration Famotidine 20 mg 03/09/21 09:00 03/12/21 08:36 Famotidine 20 Mg Tablet PO 20 mg BID SILVINA Administration Furosemide 40 mg 03/10/21 12:39 03/12/21 08:36 Furosemide Inj 40 Mg/4 Ml Vial IV PUSH 40 mg DAILY SILVINA Administration Gabapentin 300 mg 03/11/21 13:00 03/12/21 14:04 Gabapentin 300 Mg Capsule PO 300 mg TID SILVINA Administration Haloperidol Lactate 5 mg 03/11/21 13:45 Haloperidol Lactate 5 Mg/Ml Vial IM ONCE PRN Agitation Morphine Sulfate 15 mg 03/11/21 11:30 03/12/21 09:53 Morphine Sulfate (*Crx) 15 Mg Tab Ir PO 15 mg Q4H PRN Administration Pain Rated 7-10 Nicotine 1 patch 03/09/21 12:50 03/12/21 08:36 Nicotine (*Pbkc) 21 Mg Patch TRANSDERM 1 patch QAM SILVINA Administration Polyethylene Glycol 17 gm 03/10/21 12:36 Polyethylene Glycol 3350 1
[2021-03-12] MEDS: polyethylene glycoL 3350 17 GM POWD.PACK PO (18:00)
[2021-03-12] MEDS: SENNOSIDES 8.6 MG TABLET PO (21:19)
[2021-03-12] MEDS: CLORAZEPATE DIPOTASSIUM (*CRX) 3.75 MG TABLET 7.5 MG PO (21:20)
[2021-03-13] VITALS (7 sets, daily range): BP systolic 101–113; BP diastolic 55–73; PULSE 64–92; RESP 14–20; TEMP 36.1–36.5; O2SAT 95–98
[2021-03-13] MEDS: ACETAMINOPHEN 500 MG TABLET 1000 MG PO ×2 (05:37→14:02)
[2021-03-13 06:09] LABS: Basophils Absolute Auto 0.1 K/mm3 (0.0-0.1); Basophils Percent Auto 1.1 % (0.2-1.2); Eosinophils Absolute Auto 0.5 K/mm3 (0-0.3); Eosinophils Percent Auto 5.2 % (0-4.4); Hematocrit 38.8 % (37.0-47.0); Hemoglobin 12.8 g/dL (12.0-15.0); Immature Granulocyte Absolute 0.17 K/mm3 (0.00-0.031); Immature Granulocyte Percent A 1.8 % (0-0.5); Lymphocytes Percent Auto 17.9 % (18.3-44.2); Mean Corpuscular Hemoglobin 34.5 pg (26-34); Mean Corpuscular Volume 104.6 fl (80-100); Mean Platelet Volume 9.4 fl (7.4-10.4); Monocytes Absolute Auto 0.6 K/mm3 (0.1-0.6); Monocytes Percent Auto 6.2 % (2.6-8.5); Neutrophils Absolute Auto 6.4 K/mm3 (1.3-6.7); Neutrophils Percent Auto 67.8 % (45.5-73.1); Platelet Count Result 549 k/mm3 (150-375); Red Blood Count 3.71 M/mm3 (4.2-5.4); Red Cell Distribution Width 10.6 % (11.5-14.5); White Blood Count 9.5 K/mm3 (4.5-10.0)
[2021-03-13 06:57] LABS: Alanine Aminotransferase 18 U/L (4-35); Albumin Level 4.1 g/dL (3.5-5.1); Alkaline Phosphatase 273 U/L (38-126); Anion Gap 7 mmol/L (8-16); Aspartate Amino Transferase 48 U/L (14-36); Bilirubin,Total 0.4 mg/dL (0.2-1.3); Blood Urea Nitrogen 26 mg/dL (7-17); Calcium 9.8 mg/dL (8.4-10.2); Carbon Dioxide 27 mmol/L (22-30); Chloride 96 mmol/L (98-107); Estimated CRCL calculation 34 ml/min; Estimated Glomerular Filt Rate 46; Glucose 99 mg/dL (65-110); Magnesium 2.1 mg/dL (1.6-2.3); Phosphorus 6.5 mg/dL (2.5-4.5); Sodium 130 mmol/L (137-145)
[2021-03-13] MEDS: ENOXAPARIN 30 MG/0.3 ML SYRINGE SUB-Q (09:10)
[2021-03-13] MEDS: ARTIFICIAL TEARS OPHTH SOLN 15 ML BOTTLE 1 DROP EACH EYE (09:10)
[2021-03-13] MEDS: GABAPENTIN 300 MG CAPSULE PO ×2 (09:11→14:02)
[2021-03-13] MEDS: DICLOFENAC SOD 25 MG TABLET.EC 50 MG PO (09:11)
[2021-03-13] MEDS: DOCUSATE SODIUM 100 MG CAPSULE PO (09:11)
[2021-03-13] MEDS: NICOTINE (*PBKC) 21 MG PATCH 1 PATCH TRANSDERM (09:12)
[2021-03-13] MEDS: FUROSEMIDE INJ 40 MG/4 ML VIAL IV PUSH (09:12)
[2021-03-13] MEDS: FAMOTIDINE 20 MG TABLET PO (09:12)
--- NOTE | 2021-03-13 11:11 | PC.NURSE ---
Transfer received from IMU room 206. Patient oriented to the room.
--- NOTE | 2021-03-13 11:12 | PC.NURSE ---
This patient, Selena Chen, was transferred to [ 249 ] on 03/13/21 at 1105. Personal belongings sent with patient. Report given to [ VLADIMIR Lopes. ]. Appropriate documentation sent with patient.
[2021-03-13] MEDS: MORPHINE SULFATE (*CRX) 15 MG TAB IR PO (12:27)
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
--- NOTE | 2021-03-13 15:51 | PC.NURSE ---
On 03/13/21, the student, [Zulma ], provided care and completed [facility] documentation on this patient. I have reviewed the student's documentation and agree with the findings.
--- NOTE | 2021-03-13 16:35 | PC.NURSE ---
Patient receiving 48 holtor monitor and then discharging home. Patient given instructions.
--- NOTE | 2021-03-18 16:25 | WPDHOLTEREM ---
Holter/Event Monitor Holter/Event Monitor Date of procedure: 03/13/21 Holter/Event Procedure: 48 Hr Holter Monitor Indications: Syncope Conclusion: 1. 48 hour holter monitor on 03/13/21. 2. Underlying rhythm is sinus rhythm. HR range 54-126 bpm; average HR 81 bpm. 3. There are 19 premature supraventricular complexes. No supraventricular tachycardia. 4. There are 23 premature ventricular complexes. No ventricular tachycardia. 5. No sinoatrial or atrioventricular blocks. No significant pauses greater than 2 seconds. 6. No symptoms available for correlation.
== END 2021-03-13 16:50 | disposition home health service (06) | DRG 204 ==
LOC: ANHED 15:20 → ANH3MEDSUR 15:44 → ANHIMU 03-11 10:58 → ANH2MED 03-13 15:57 → ANH3MEDSUR 03-17 09:56 → ANHIMU 03-17 09:56
PROVIDERS: Family Medicine; Physician Assistant; Admitting Provider Internal Medicine; Emergency Provider Emergency Medicine; PCP Internal Medicine Gastroenterology; Visit Provider Internal Medicine
DX: R55 Syncope and collapse (principal); J96.01 Acute respiratory failure with hypoxia; Z20.822 Contact with and (suspected) exposure to COVID-19; R93.89 Abnormal findings on diagnostic imaging of other specified body structures; S22.060A Wedge compression fracture of T7-T8 vertebra, initial encounter for closed fracture; S22.070A Wedge compression fracture of T9-T10 vertebra, initial encounter for closed fracture; W19.XXXA Unspecified fall, initial encounter; S92.302A Fracture of unspecified metatarsal bone(s), left foot, initial encounter for closed fracture; V09.9XXA Pedestrian injured in unspecified transport accident, initial encounter; G62.9 Polyneuropathy, unspecified; I27.20 Pulmonary hypertension, unspecified; J44.9 Chronic obstructive pulmonary disease, unspecified; F17.210 Nicotine dependence, cigarettes, uncomplicated; F41.9 Anxiety disorder, unspecified; K21.9 Gastro-esophageal reflux disease without esophagitis; M81.0 Age-related osteoporosis without current pathological fracture; M54.2 Cervicalgia; G89.29 Other chronic pain; Z79.899 Other long term (current) drug therapy
CPT/HCPCS: 36415; 70450; 70551; 71275; 73630; 76536; 80048; 80053; 82607; 82728; 82746; 82948; 83540; 83735; 83880; 84100; 84443; 85025; 85027; 85610; 85730; 87040; 87070; 87205; 87426; 93005; 93225; 93226; 93306; 96361; 96365; 96366; 96367; 96372; 96375; 97116; 97163; 97165; 97530; 97535; 99285; A9270; C9803; G0378; G0379; J0456; J0696; J1200; J1630; J1650; J1940; J2060; J2270; J7030; Q9967; U0003; U0005

== ENCOUNTER 2021-06-04 08:37 | Outpatient (CLI) | payer OTHER, SELFPAY ==
--- NOTE | 2021-06-04 11:00 | NEURO_ITS ---
Impression: # Complains of paresthesia all over. # Left peroneal neuropathy. # No Carpal Tunnel Syndrome or ulnar neuropathy. # Needle/EMG exam revealed mild neurogenic changes in left EDB. # Clinical correlation recommended. Higher involvement needs to be ruled out. Nerve Conduction Studies Anti Sensory Summary Table Stim Site NR Peak (ms) P-T Amp (?V) Site1 Site2 Delta-P (ms) Dist (cm) Cheng (m/s) Left Median Anti Sensory (2-3nd Digit) Wrist 3.4 59.5 Wrist 2-3nd Digit 3.4 14.0 41 Wrist 3.4 62.5 Wrist 2-3nd Digit 3.4 14.0 41 Right Median Anti Sensory (2-3nd Digit) Wrist 3.2 28.7 Wrist 2-3nd Digit 3.2 14.0 44 Wrist 3.1 56.0 Wrist 2-3nd Digit 3.2 14.0 44 Left Radial Anti Sensory (Base 1st Digit) Wrist 2.6 35.8 Wrist Base 1st Digit 2.6 0.0 Right Radial Anti Sensory (Base 1st Digit) Wrist 2.9 14.3 Wrist Base 1st Digit 2.9 0.0 Left Sup Fibular Anti Sensory (Ant Lat Mall) 14 cm 3.5 13.7 14 cm Ant Lat Mall 3.5 16.0 46 Right Sup Fibular Anti Sensory (Ant Lat Mall) 14 cm 3.9 20.1 14 cm Ant Lat Mall 3.9 16.0 41 Left Sural Anti Sensory (Lat Mall) Calf 4.0 13.8 Calf Lat Mall 4.0 16.0 40 Right Sural Anti Sensory (Lat Mall) Calf 4.0 15.1 Calf Lat Mall 4.0 16.0 40 Left Ulnar Anti Sensory (5th Digit) Wrist 3.0 63.9 Wrist 5th Digit 3.0 14.0 47 Right Ulnar Anti Sensory (5th Digit) Wrist 2.8 23.5 Wrist 5th Digit 2.8 14.0 50 Motor Summary Table Stim Site NR Onset (ms) O-P Amp (mV) Site1 Site2 Delta-0 (ms) Dist (cm) Cheng (m/s) Left Median Motor (Abd Poll Brev) Wrist 3.5 2.9 Elbow Wrist 4.5 25.0 56 Elbow 8.0 2.3 Right Median Motor (Abd Poll Brev) Wrist 3.1 3.2 Elbow Wrist 4.6 26.0 57 Elbow 7.7 3.0 Left Peroneal Motor (Vastus Med) Ankle 3.2 0.2 Popit Ankle 8.5 38.0 45 Popit 11.7 0.8 Right Peroneal Motor (Vastus Med) Ankle 3.5 1.3 Popit Ankle 8.2 36.0 44 Popit 11.7 0.6 Left Tibial Motor (Abd Gaston Brev) Ankle 4.1 2.7 Knee Ankle 9.0 39.0 43 Knee 13.1 1.6 Right Tibial Motor (Abd Gaston Brev) Ankle 4.1 6.7 Knee Ankle 8.5 38.0 45 Knee 12.6 2.3 Left Ulnar Motor (Abd Dig Minimi) Wrist 2.2 6.2 A Elbow Wrist 4.8 27.0 56 A Elbow 7.0 5.5 Right Ulnar Motor (Abd Dig Minimi) Wrist 2.3 5.2 A Elbow Wrist 4.8 27.0 56 A Elbow 7.1 3.8 F Wave Studies NR F-Lat (ms) L-R F-Lat (ms) Left Median (Mrkrs) (Abd Poll Brev) 29.49 0.37 Right Median (Mrkrs) (Abd Poll Brev) 29.12 0.37 Left Peroneal (Mrkrs) (EDB) 50.18 Right Peroneal (Mrkrs) (EDB) DISPERSED RESPONSE NR Left Tibial (Mrkrs) (Abd Hallucis) 52.63 1.53 Right Tibial (Mrkrs) (Abd Hallucis) 51.09 1.53 Left Ulnar (Mrkrs) (Abd Dig Min) 29.92 0.16 Right Ulnar (Mrkrs) (Abd Dig Min) 29.77 0.16 EMG Side Muscle Nerve Root Ins Act Fibs Amp Dur Recrt Comment Right 1stDorInt Ulnar C8-T1 Nml Nml Nml Nml Nml Right Ext Indicis Radial (Post Int) C7-8 Nml Nml Nml Nml Nml Right Ext Digitorum Radial (Post Int) C7-8 Nml Nml Nml Nml Nml Right BrachioRad Radial C5-6 Nml Nml Nml Nml Nml Right PronatorTeres Median C6-7 Nml Nml Nml Nml Nml Right Abd Poll Brev Median C8-T1 Nml Nml Nml Nml Nml Right AntTi
== END 2021-06-04 08:38 | disposition home or self-care (01) ==
LOC: ANHNEURO 08:38
PROVIDERS: PCP Emergency Medicine; Visit Provider Psychiatry & Neurology Neurology
DX: R20.2 Paresthesia of skin (principal); G56.21 Lesion of ulnar nerve, right upper limb
CPT/HCPCS: 95886; 95913

== ENCOUNTER 2021-06-21 12:39 | Outpatient (CLI) | payer OTHER, SELFPAY ==
--- NOTE | ~2021-06-21 | XR_ITS ---
XR wrist LT 2V 06/21/2021 14:09 Indication: Left wrist pain Procedure: 2 views left wrist Comparison: 06/21/2021 Findings: No fracture, subluxation or dislocation. There is mild degenerative osteoarthritis of the t riscaphe and first MCP joints. There is osteopenia. No focal soft tissue swelling. No foreign bodies. Impression: 1: Mild polyarticular osteoarthritis. Reviewed, dictated and finalized at location A. MACEUTICAL SPECIALTY REPRESENTATIVE Impression: 1: Mild polyarticular osteoarthritis.
--- NOTE | ~2021-06-21 | XR_ITS ---
XR wrist RT 2V 06/21/2021 14:09 Indication: Multiple joint pain. Procedure: 2 views of the right wrist Comparison: No prior studies for comparison. Findings: There is mild osteoarthritis of the triscaphe and first MCP joints. No fracture or traumati c malalignment. There is osteopenia. No significant soft tissue abnormality. No foreign bodies. Impression: 1: Mild polyarticular osteoarthritis. Reviewed, dictated and finalized at location A. PRESSER Impression: 1: Mild polyarticular osteoarthritis.
--- NOTE | ~2021-06-21 | XR_ITS ---
XR foot LT 2V 06/21/2021 14:09 Indication: Joint pain Procedure: 2 views of the left foot Comparison: 03/08/2021 Findings: There are healing nondisplaced fractures of the left second, third and fourth metatarsal ne cks. Lisfranc joint intact. Mild osteoarthritis of the first MTP joint. Small degenerative calcaneal enthesophyte. Impression: 1: Healing nondisplaced fractures of the left second, third and fourth metatarsals. Reviewed, dictated and finalized at location A. IR TECH Impression: 1: Healing nondisplaced fractures of the left second, third and fourth metatars als.
--- NOTE | ~2021-06-21 | XR_ITS ---
XR hand LT 2V 06/21/2021 14:08 Indication: Joint pain Procedure: 2 views left hand Comparison: No prior studies for comparison. Findings: No fracture, subluxation or dislocation. There is mild polyarticular osteoarthritis. There is no significant soft tissue abnormality. No foreign bodies. Impression: 1: Mild polyarticular osteoarthritis. Reviewed, dictated and finalized at location A. AIR CONDITIONING APPRENTICE Impression: 1: Mild polyarticular osteoarthritis.
--- NOTE | ~2021-06-21 | XR_ITS ---
XR elbow RT 2V 06/21/2021 14:08 Indication: Joint pain Procedure: 2 views right elbow Comparison: No prior studies for comparison. Findings: No fracture, subluxation or dislocation. No joint effusion. No significant joint space narr owing. No foreign bodies. Impression: 1: No significant bone or joint abnormality. Reviewed, dictated and finalized at location A. AVER LETTER Impression: 1: No significant bone or joint abnormality.
--- NOTE | ~2021-06-21 | XR_ITS ---
XR shoulder RT min 2V, XR shoulder LT min 2V 06/21/2021 14:08 Indication: Bilateral shoulder pain Procedure: 2 views each shoulder Comparison: No prior studies for comparison. Findings: No fracture, subluxation or dislocation. There is anatomic alignment. No significant joint space narrowing. No erosive changes. Osteopenia. There is coarse interstitial changes bilaterally in the lung parenchyma which may reflect mild edema, pneumonia or chronic fibrosis. Impression: 1: No significant bone or joint abnormality. 2: Course interstitial changes bilaterally in the lung parenchyma which may reflect mild edema, pneum onia or chronic fibrosis. Reviewed, dictated and finalized at location A. AND SAFETY HELPER Impression: 1: No significant bone or joint abnormality. 2: Course interstitial changes bilaterally in the lung parenchyma which may ref lect mild edema, pneumonia or chronic fibrosis. Impression: 1: No significant bone or joint abnormality. 2: Course interstitial changes bilaterally in the lung parenchyma which may ref lect mild edema, pneumonia or chronic fibrosis.
--- NOTE | ~2021-06-21 | XR_ITS ---
XR elbow LT 2V 06/21/2021 14:08 Indication: Joint pain Procedure: 2 views left elbow Comparison: No prior studies for comparison. Findings: There is anatomic alignment. No significant joint space narrowing. No erosive changes. No f racture or traumatic malalignment. No joint effusion. Impression: 1: No significant bone or joint abnormality. Reviewed, dictated and finalized at location A. . STRATEGIC SOURCING MANAGER Impression: 1: No significant bone or joint abnormality.
--- NOTE | ~2021-06-21 | XR_ITS ---
XR ankle RT 2V, XR foot RT 2V 06/21/2021 14:08 (accession [id number]), 06/21/2021 14:09 (accession [id number]) Indication: Right ankle pain Procedure: 2 views right ankle and 2 views right foot Comparison: 05/17/2013. Findings: There are mild degenerative changes of the ankle. There is a small ossific density inferior to the fibula, consistent with old fracture. Lisfranc joint intact. Osteopenia. Mild osteoarthritis of the first MTP joint. Impression: 1: No acute bone or joint abnormality. Reviewed, dictated and finalized at location A. TIONSHIP SPECIALIST Impression: 1: No acute bone or joint abnormality. Impression: 1: No acute bone or joint abnormality.
--- NOTE | ~2021-06-21 | XR_ITS ---
XR knee RT 2V, XR knee LT 2V 06/21/2021 14:08 Indication: Multiple joint pain Procedure: 2 views of each knee Comparison: No prior studies for comparison. Findings: No fracture, subluxation or dislocation. No significant joint effusion. No joint space narr owing. No erosive changes. There are vascular calcifications. Impression: 1: No significant bone or joint abnormality. Reviewed, dictated and finalized at location A. O VISUAL MANAGER Impression: 1: No significant bone or joint abnormality. Impression: 1: No significant bone or joint abnormality.
--- NOTE | ~2021-06-21 | XR_ITS ---
XR hand RT 2V 06/21/2021 14:08 Indication: Multiple joint pain Procedure: 2 views right hand Comparison: No prior studies for comparison. Findings: Mild polyarticular osteoarthritis. No fracture, subluxation or dislocation. No significant soft tissue abnormality. No foreign bodies. No acute fracture or traumatic malalignment. Impression: 1: Mild polyarticular osteoarthritis. Reviewed, dictated and finalized at location A. ING INSPECTOR Impression: 1: Mild polyarticular osteoarthritis.
--- NOTE | ~2021-06-21 | XR_ITS ---
XR hip BI wo pelvis 06/21/2021 14:09 Indication: Joint pain Procedure: 2 views of each hip Comparison: No prior studies for comparison. Findings: No fracture, subluxation or dislocation. No erosive changes. No significant joint space ryne rowing. Sacral foramen are symmetric. Pelvic structures are unremarkable. There are vascular calcific ations. Impression: 1: No significant bone or joint abnormality. Reviewed, dictated and finalized at location A. N ENERGY MARKETING ANALYST Impression: 1: No significant bone or joint abnormality.
--- NOTE | ~2021-06-21 | XR_ITS ---
XR ankle LT 2V 06/21/2021 14:08 Indication: Left ankle pain Procedure: 2 views left ankle Comparison: 12/17/2009 Findings: There is anatomic alignment. No fracture, subluxation or dislocation. Ankle mortise intact. Talar dome within normal limits. No focal soft tissue abnormality. No foreign bodies. There is a sma ll degenerative calcaneal enthesophyte. Impression: 1: No significant bone or joint abnormality. Reviewed, dictated and finalized at location A. LING AND SIMULATION ANALYST Impression: 1: No significant bone or joint abnormality.
== END 2021-06-21 12:40 | disposition home or self-care (01) ==
LOC: ANHIMG 12:46
PROVIDERS: PCP Emergency Medicine; Visit Provider Internal Medicine Rheumatology
DX: M19.032 Primary osteoarthritis, left wrist (principal); M19.031 Primary osteoarthritis, right wrist; M19.042 Primary osteoarthritis, left hand; M19.041 Primary osteoarthritis, right hand; S92.325A Nondisplaced fracture of second metatarsal bone, left foot, initial encounter for closed fracture; S92.335A Nondisplaced fracture of third metatarsal bone, left foot, initial encounter for closed fracture; S92.345A Nondisplaced fracture of fourth metatarsal bone, left foot, initial encounter for closed fracture; M19.071 Primary osteoarthritis, right ankle and foot; M77.32 Calcaneal spur, left foot
CPT/HCPCS: 73030; 73070; 73100; 73120; 73521; 73560; 73600; 73620

== ENCOUNTER 2021-06-30 10:39 | Outpatient (CLI) | payer OTHER, SELFPAY ==
--- NOTE | ~2021-06-30 | XR_ITS ---
XR sinus min 3V DATE: 06/30/2021 10:59 INDICATION: Sinus pressure. Chronic sinusitis. TECHNIQUE: edd Vital, lateral and submental vertical views COMPARISON: None FINDINGS: The paranasal sinuses and mastoid air cells are normally developed and aerated. There is leftward deviation of the nasal septum. IMPRESSION: Normal paranasal sinuses and mastoid air cells Reviewed, dictated and finalized at location A. H MOLDER
== END 2021-06-30 10:40 | disposition home or self-care (01) ==
LOC: ANHIMG 10:42
PROVIDERS: PCP Emergency Medicine; Visit Provider Emergency Medicine
DX: J32.9 Chronic sinusitis, unspecified (principal)
CPT/HCPCS: 70220

== ENCOUNTER 2021-07-07 11:23 | Outpatient (RCR) | payer OTHER, SELFPAY | END 2021-07-07 23:59 | disposition home or self-care (01) | LOC: ANHAUDIO 11:23 | PROVIDERS: PCP Emergency Medicine; Visit Provider Emergency Medicine | DX: Z46.1 Encounter for fitting and adjustment of hearing aid (principal) | CPT/HCPCS: 99199 ==

== ENCOUNTER 2021-08-18 12:53 | Outpatient (CLI) | payer OTHER, SELFPAY | END 2021-08-18 12:54 | disposition home or self-care (01) | LOC: ANHAUDIO 12:55 | PROVIDERS: PCP Emergency Medicine; Visit Provider Emergency Medicine | DX: H90.3 Sensorineural hearing loss, bilateral (principal) | CPT/HCPCS: 92557; 92567 ==

== ENCOUNTER 2021-08-19 10:35 | Outpatient (CLI) | payer OTHER, SELFPAY ==
--- NOTE | ~2021-08-19 | CT_ITS ---
EXAMINATION: CT sinus wo con DATE: 08/19/2021 10:59 INDICATION: Chronic sinusitis. TECHNIQUE: Computed tomography (CT) of the paranasal sinuses was performed without contrast. Iterativ e reconstruction technique was employed. Exam dose: 267.28 mGy-cm total exam DLP. COMPARISON: 06/30/2021 plain radiographs of the sinuses. FINDINGS: There is leftward deviation of the nasal septum. There is moderately prominent soft tissue thickening of the nasal turbinates. There is intralamellar cell and prominent balwinder bullosa of the right middle nasal turbinate. The ostiomeatal units are patent. There is mucoperiosteal thickening along the lateral wall of the right sphenoid sinus. There is minimal focal soft tissue thickening of the frontal sinuses. The paranasal sinuses and masto id air cells are otherwise normally developed and aerated. IMPRESSION: Leftward deviation of the nasal septum Prominent balwinder bullosa and interlamellar cell of right middle nasal turbinate Minimal focal soft tissue thickening at the frontal sinuses and soft tissue thickening along the late ral wall of right sphenoid sinus; otherwise patent paranasal sinuses and mastoid air cells Reviewed, dictated and finalized at Location A. Reviewed, dictated and finalized at location B. NG SETTER IMPRESSION: Leftward deviation of the nasal septum Prominent balwinder bullosa and interlamellar cell of right middle nasal turbinate Minimal focal soft tissue thickening at the frontal sinuses and soft tissue thi ckening along the lateral wall of right sphenoid sinus; otherwise patent parana addie sinuses and mastoid air cells
== END 2021-08-19 10:36 | disposition home or self-care (01) ==
PROVIDERS: PCP Emergency Medicine; Visit Provider Nurse Practitioner Family
DX: J32.9 Chronic sinusitis, unspecified (principal); J34.2 Deviated nasal septum
CPT/HCPCS: 70486

== ENCOUNTER 2021-09-08 10:15 | Outpatient (CLI) | payer OTHER, SELFPAY ==
--- NOTE | ~2021-09-08 | XR_ITS ---
EXAMINATION: XR chest 2V DATE: 09/08/2021 10:32 INDICATION: Interstitial lung disease, tobacco use TECHNIQUE: Frontal and lateral views of the chest are obtained COMPARISON: CT, 03/08/2021 FINDINGS: There are widespread reticular opacities with a peripheral lung zone predominance. The lung s are free of acute opacities. There is no pleural effusion or pneumothorax. The cardiomediastinal si lhouette is normal. Multiple thoracic compression fractures are again noted. IMPRESSION: 1. Peripheral opacities of the lungs which may reflect emphysema and/or chronic interstitial lung dis ease. Reviewed, dictated and finalized at location B. OL ADMISSIONS REPRESENTATIVE IMPRESSION: 1. Peripheral opacities of the lungs which may reflect emphysema and/or chronic interstitial lung disease.
== END 2021-09-08 10:16 | disposition home or self-care (01) ==
LOC: ANHIMG 10:20
PROVIDERS: PCP Emergency Medicine; Visit Provider Internal Medicine Rheumatology
DX: J84.9 Interstitial pulmonary disease, unspecified (principal)
CPT/HCPCS: 71046

== ENCOUNTER 2021-09-11 17:01 | Emergency (ER) | payer OTHER, SELFPAY ==
--- NOTE | ~2021-09-11 | XR_ITS ---
EXAMINATION: XR hip BI 2V w AP pelvis DATE: 09/11/2021 18:06 INDICATION: Fall 2 times this week with worsening pelvic pain. TECHNIQUE: Anteroposterior view of the pelvis and anteroposterior and frog-leg lateral views of the l eft hip and anteroposterior and frog-leg lateral views of the right hip and were obtained. COMPARISON: 06/21/2021 FINDINGS: Alignment is normal. No fracture. Bilateral hip and sacroiliac joint spaces are relatively preserved. Atherosclerotic calcifications along the abdominal aorta and bilateral iliac and femoral arteries. IMPRESSION: 1. No acute osseous abnormality. Reviewed, dictated and finalized at location A. BOSS
--- NOTE | ~2021-09-11 | XR_ITS ---
EXAMINATION: XR ribs BI 3V w CXR 2V DATE: 09/11/2021 18:06 INDICATION: Chest pain post fall TECHNIQUE: AP and lateral views of the chest and 3 views of the tuft ribs and 3 views of the right ri bs were obtained. 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 Additional old healed fractures at t he anterolateral right fourth-sixth and posterolateral right seventh and eighth ribs. No left-sided r ib fractures. No significant change in chronic compression fractures of T7-T10. Developmentally unfus ed T1 spinous process. Persistent bilateral coarse interstitial pattern most prominent in the right m id to upper and left lower lung zones. No pleural effusion or pneumothorax. Cardiomediastinal silhoue tte is normal. IMPRESSION: 1. Multiple chronic right rib fractures and several chronic lower thoracic compression fractures. No acute fractures identified. 2. Persistent bilateral coarse interstitial pattern suggesting chronic interstitial lung disease with differential including pulmonary edema or pneumonia. Reviewed, dictated and finalized at location A. EL MACHINE OPERATOR IMPRESSION: 1. Multiple chronic right rib fractures and several chronic lower thoracic comp ression fractures. No acute fractures identified. 2. Persistent bilateral coarse interstitial pattern suggesting chronic intersti tial lung disease with differential including pulmonary edema or pneumonia.
--- NOTE | ~2021-09-11 | CT_ITS ---
EXAMINATION: CT lumbar spine wo con DATE: 09/11/2021 17:40 INDICATION: Fall TECHNIQUE: Computed tomography (CT) of the lumbar spine was performed without intravenous contrast. A utomated exposure control and iterative reconstruction technique were employed. The dose-length produ ct was 247.22 mGy-cm. COMPARISON: None FINDINGS: Hypoplastic riblets at work for purposes of this report will be designated L1 with 12 more cephalad p aired rib bearing thoracic segments seen on chest radiograph dated 09/18/2021. The transitional S1 seg ment is partially lumbarized on the right with rudimentary S1-S2 disc space. Sagittal alignment is no rmal. Chronic likely physiologic mild anterior wedging at T12. Lumbar vertebral body heights are norm al. No fracture. Mild disc height loss at L3-L4. There is calcified atherosclerosis of the aorta and bilateral iliac arteries. Paravertebral soft tissues are unremarkable. IMPRESSION: 1. Mild lumbar dextro scoliosis with mild disc height loss at L3-L4. No acute osseous abnormality. Reviewed, dictated and finalized at location A. RVISOR ASSEMBLY IMPRESSION: 1. Mild lumbar dextro scoliosis with mild disc height loss at L3-L4. No acute o sseous abnormality.
[2021-09-11 16:59] VITALS: PULSE 86; RESP 14; TEMP 36.6; O2SAT 97
[2021-09-11 17:05] VITALS: PULSE 83
--- NOTE | 2021-09-11 17:14 | ECG_ITS ---
Measurements Intervals [place] Rate: 67 P: 61 VA: 171 QRS: 60 QRSD: 92 T: 71 QT: 405 QTc: 428 Interpretive Statements SINUS RHYTHM NORMAL ECG COMPARED TO ECG 03/08/2021 10:36:27 NO SIGNIFICANT CHANGES Electronically Signed On 09-12-2021 7:10:37 HEALTH SERVICE COORDINATOR by Adán Cruz M.D.
[2021-09-11 17:16] VITALS: BP 111/82; PULSE 82; RESP 21; O2SAT 97
--- NOTE | 2021-09-11 17:22 | ED.FALL ---
HPI - Fall General Chief Complaint: Fall Stated Complaint: cp Time Seen by Provider: 09/11/21 17:02 Source: patient Mode of arrival: EMS Limitations: no limitations History of Present Illness HPI Narrative: 61-year-old female presents today with complaints of 2 falls over the last 2 days. Patient states her falls are from her left leg giving out. Patient states she had back fractures in the 90s and has had issues since then. Patient with pain to the left buttock. Denies any radiation down the leg. Patient denies any urinary incontinence, fecal incontinence, or saddle paresthesia. Patient states that she can be walking and the leg just gives out on her and she falls. Patient states both falls this week but in the middle the room without injury. Patient states that she is fallen on both knees. Patient also admits to left posterior rib pain, left breast pain. Patient states she follows up with the pain clinic and they have not been able to do an epidural injection as of recent. She states that the next time that they are able to is about 6 months from now. Related Data Home Medications Medication Instructions Recorded Confirmed baclofen 10 mg tablet 10 mg PO TID tablet 02/18/21 07/31/21 acetaminophen 500 mg tablet See Rx Instructions .ROUTE 04/28/21 07/31/21 .COMPLEX tablet calcium carbonate 600 mg-vitamin See Rx Instructions .ROUTE .COMPLEX 04/28/21 07/31/21 D3 12.5 mcg (500 unit) capsule loratadine 10 mg tablet 10 mg PO DAILY 04/28/21 07/31/21 magnesium hydroxide 400 mg/5 mL See Rx Instructions .ROUTE .COMPLEX 04/28/21 07/31/21 oral suspension flu vacc [id number] 6mos up(PF) 0.5 ml IM ONCE 06/02/21 07/31/21 ipratropium bromide 17 2 puff INHALATION QID 06/02/21 07/31/21 mcg/actuation HFA aerosol inhaler Allergies Allergy/AdvReac Type Severity Reaction Status Date / Time cyclobenzaprine Allergy Severe Rash Verified 09/11/21 17:03 [From Flexeril] Review of Systems Review of Systems: CONSTITUTIONAL: Denies fever, chills, or sweats. 1 fall the day over the last 2 days. EYES: Denies visual changes, redness, or discharge. ENT: Denies rhinorrhea, congestion, sore throat, or otalgia. CARDIOVASCULAR: Left upper back pain, left rib pain. Denies chest pain, palpitations, or edema. RESPIRATORY: Denies cough or dyspnea. GASTROINTESTINAL: Denies abdominal pain, nausea, vomiting, or diarrhea. GENITOURINARY: Denies dysuria or hematuria. SKIN: Denies rash or itching. MUSCULOSKELETAL: Left buttock pain, left upper back/rib pain, and pelvic pain. NEUROLOGIC: Denies headache, numbness, dizziness, or weakness. PSYCHIATRIC: Denies anxiety or depression. [facility] Past Medical History Medical History Anxiety Arthritis Bronchitis Chronic constipation Chronic obstructive pulmonary disease Gastroesophageal reflux disease Hard of hearing Tobacco dependence Surgical History Surgical History H/O: hysterectomy History of cholecystectomy History of right oophorectomy Large right ovarian mass removed in June 2002. 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 Family History Family History Other Hypertension Social History Social History Social History: The patient lives in [place]. Smokes between 2 and 3 packs of cigarettes a day and has for nearly 50 years. Drinks perhaps 1 beer a week. Occasional marijuana use. She designates her friend, Emery Condon, as her surrogate decision maker. Code status: Full code. Smoking packs per day: 2 Smoking cigarettes per day: 40.0 Years smoked: 53 Smoking pack-years: 106.00 Smoking status: Current every day smoker Tobacco type: cigarettes Alcohol intake: never Substance use: current Substance use type: marijuana Ad
[2021-09-11] MEDS: KETOROLAC 15 MG/ML VIAL (*BKC) IV PUSH (18:16)
[2021-09-11 18:37] LABS: Alanine Aminotransferase 18 U/L (4-35); Albumin Level 4.2 g/dL (3.5-5.1); Alkaline Phosphatase 82 U/L (38-126); Anion Gap 4 mmol/L (8-16); Aspartate Amino Transferase 39 U/L (14-36); Bilirubin,Total 0.2 mg/dL (0.2-1.3); Blood Urea Nitrogen 17 mg/dL (7-17); Calcium 9.1 mg/dL (8.4-10.2); Carbon Dioxide 29 mmol/L (22-30); Chloride 106 mmol/L (98-107); Estimated CRCL calculation 40 ml/min; Estimated Glomerular Filt Rate 56; Glucose 96 mg/dL (65-110); Potassium 3.9 mmol/L (3.4-5.0); Sodium 139 mmol/L (137-145)
[2021-09-11 18:48] LABS: Basophils Percent Auto 0.5 % (0.2-1.2); Eosinophils Absolute Auto 0.1 K/mm3 (0-0.3); Eosinophils Percent Auto 1.5 % (0-4.4); Hematocrit 35.7 % (37.0-47.0); Hemoglobin 11.9 g/dL (12.0-15.0); Immature Granulocyte Absolute 0.04 K/mm3 (0.00-0.031); Immature Granulocyte Percent A 0.5 % (0-0.5); Lymphocytes Absolute Auto 2.27 K/mm3 (0.9-3.2); Lymphocytes Percent Auto 25.9 % (18.3-44.2); Mean Corpuscular HGB Conc 33.3 g/dl (32-36); Mean Corpuscular Hemoglobin 33.9 pg (26-34); Mean Corpuscular Volume 101.7 fl (80-100); Mean Platelet Volume 8.6 fl (7.4-10.4); Monocytes Absolute Auto 0.6 K/mm3 (0.1-0.6); Monocytes Percent Auto 6.4 % (2.6-8.5); Neutrophils Absolute Auto 5.7 K/mm3 (1.3-6.7); Neutrophils Percent Auto 65.2 % (45.5-73.1); Platelet Count Result 379 k/mm3 (150-375); Red Blood Count 3.51 M/mm3 (4.2-5.4); Red Cell Distribution Width 12.5 % (11.5-14.5); Troponin I < 0.012 ng/mL (0.000-0.034); White Blood Count 8.8 K/mm3 (4.5-10.0)
[2021-09-11] MEDS: LIDOCAINE 5% PATCH 1 PATCH TRANSDERM (18:48)
[2021-09-11 19:31] VITALS: BP 161/88; PULSE 79; RESP 18; O2SAT 97
[2021-09-11] MEDS: HYDROcodone/acetaminophen (*CRX) 5-325 MG TABLET 1 TAB PO (19:38)
== END 2021-09-11 19:57 | disposition home or self-care (01) ==
PROVIDERS: Emergency Provider Nurse Practitioner Family; PCP Emergency Medicine
DX: M54.50 Low back pain, unspecified (principal); G89.29 Other chronic pain; J44.9 Chronic obstructive pulmonary disease, unspecified; K21.9 Gastro-esophageal reflux disease without esophagitis; K59.09 Other constipation; M19.90 Unspecified osteoarthritis, unspecified site; R91.8 Other nonspecific abnormal finding of lung field; M41.9 Scoliosis, unspecified; F17.210 Nicotine dependence, cigarettes, uncomplicated; W18.39XA Other fall on same level, initial encounter
CPT/HCPCS: 36415; 71046; 71110; 72131; 73521; 80053; 84484; 85025; 93005; 96374; 96375; 99284; A9270; J1100; J1885

== ENCOUNTER 2021-09-17 09:50 | Outpatient (CLI) | payer OTHER, SELFPAY ==
--- NOTE | ~2021-09-17 | DEXA_ITS ---
Bone Density Report Name: TIA GOMEZ Age: 61 Sex: Female Ethnicity: White Date of : 1960 Indication: osteopenia; monitoring treatment; prior fracture; hysterectomy; postmenopausal Referring Provider: PIPPA TIMMONS Study: Bone densitometry was performed. Exam Date: September 17, 2021 Accession number: [id number] Bone Density: Region BMD T-score Z-score Classification AP Spine (L1, L2, L3) 0.760 -2.3 -0.8 Osteopenia Femoral Neck (Left) 0.587 -2.4 -0.9 Osteopenia Total Hip (Left) 0.673 -2.2 -1.1 Osteopenia Total Hip Bilateral Avg 0.676 -2.2 -1.1 Osteopenia Femoral Neck (Right) 0.665 -1.7 -0.2 Osteopenia Total Hip (Right) 0.678 -2.2 -1.1 Osteopenia World Health Organization criteria for BMD impression classify patients as: Normal (T-score at or above -1.0), Osteopenia (T-score between -1.0 and -2.5), or Osteoporosis (T-score at or below -2.5). 10-year Fracture Risk: FRAX not reported because: Treated for osteoporosis Previous Exams: Region Exam Age BMD T-score BMD Change BMD Change Date g/cm2 vs Baseline vs Previous AP Spine(L1, L2, L3) 09/17/2021 61 0.760 -2.3 -0.003(-0.4%) -0.003(-0.4%) 11/06/2020 60 0.764 -2.3 Total Hip(Left) 09/17/2021 61 0.673 -2.2 0.003(0.5%) 0.003(0.5%) 11/06/2020 60 0.669 -2.2 Total Hip(Right) 09/17/2021 61 0.678 -2.2 0.006(0.9%) 0.006(0.9%) 11/06/2020 60 0.672 -2.2 *Denotes significance at 95% confidence level, LSC for AP Spine = 0.022 g/cm2, LSC for Total Hip = 0.027 g/cm2 Clinical Information Provided by Patient: Has had a low trauma fracture Smokes Is being treated for osteoporosis Has used the following medications: Vitamin D, Calcium Has the following medical conditions: Hysterectomy Patient maximum height was 63 Menopause Age: 48 No regular weight bearing exercise Drinks caffeinated beverages Onset of menses at age 11 Number of children 1 Impression: The patient has low bone mass, based on the Left Femoral Neck T-score. The patient has risk factors, including: smoking, previous fracture. No significant bone loss was observed. Discussion: PATIENT UNDER TREATMENT WITH NO SIGNIFICANT BMD LOSS SINCE LAST EXAM. In an untreated patient, BMD typically declines with age. A lack of decline or gain is usually a sign that treatment is efficacious and fracture risk is reduced. It is important to ask patients whether they are taking their medications and to encourage continued and appr
--- NOTE | ~2021-09-17 | MM_ITS ---
EXAMINATION: MM screening [place] BI w ade HISTORY: Screening mammogram TECHNIQUE: Craniocaudal and mediolateral oblique 3-D tomosynthesis images were obtained and synthetic 2-D images were generated. CAD analysis was submitted and interpreted. COMPARISON: No prior mammogram is available for comparison at this institution. BREAST PARENCHYMAL COMPOSITION: There are scattered areas of fibroglandular density. FINDINGS: There is no suspicious mass, calcification, or architectural distortion to suggest malignan cy in either breast. IMPRESSION: 1. No mammographic evidence of malignancy. 2. Recommend routine screening mammography in one year. BI-RADS Category 1: Negative Reviewed, dictated and finalized at location A.
== END 2021-09-17 09:51 | disposition home or self-care (01) ==
PROVIDERS: PCP Emergency Medicine; Visit Provider Emergency Medicine
DX: Z12.31 Encounter for screening mammogram for malignant neoplasm of breast (principal); M81.0 Age-related osteoporosis without current pathological fracture; M85.88 Other specified disorders of bone density and structure, other site; M85.852 Other specified disorders of bone density and structure, left thigh; M85.851 Other specified disorders of bone density and structure, right thigh
CPT/HCPCS: 77063; 77067; 77080

== ENCOUNTER 2021-10-22 10:06 | Outpatient (CLI) | payer OTHER, SELFPAY ==
--- NOTE | 2021-10-27 18:45 | P.PCNPFT_ITS ---
PFT Procedure Performed PFT Procedure Performed Spirometry with Pre/Post Bronchodilator Plethysmography (Lung Vol) Diffusing Cap (DLCO) Flow Vol Loop PFT Interpretation DOS: 10/22/2021 REQUESTING: Dr. Adán Cuenca REASON FOR TESTING: COPD PULMONARY FUNCTION TESTS Results are reliable and reproducible. Spirometry: Pre-bronchodilator FEV1 is 51% predicted, moderately decreased, 1.15 L. Pre-bronchodilator FVC is 81% predicted, 2.29 L, normal. The FEV1/FVC is decreased, 50% predicted, consistent with airflow obstruction. There is a non-statistically significant increase in flows after bronchodilator administration. Lung volumes: Total lung capacity is 148% predicted, 7 L, and this is mod erately increased, consistent with moderate hyperinflation. The residual volume is 189% predicted, 3.67 L, consistent with severe air trapping. The RV/TLC is increased 52% also consistent with air trapping. Airway resistance is normal. Diffusion: DLCO is 30% predicted, severely decreased. Flow volume loop: The flow volume loop is irregular and attenuated on both inspiration and the expiration, a nonspecific abnormality. IMPRESSION: This pulmonary function test shows a moderate obstructive ventilatory impairment with moderate hyperinflation and severe air trapping with a severe diffusion impairment. There is an insignificant response to bronchodilator. This pattern is consistent with emphysema. Lack of response to bronchodilator should not preclude use if clinically indicated. The abnormal flow volume loop is abnormal in a nonspecific manner. Dianne Molina MD
== END 2021-10-22 10:07 | disposition home or self-care (01) ==
LOC: ANHPFT 10:06
PROVIDERS: PCP Emergency Medicine; Visit Provider Emergency Medicine
DX: J44.9 Chronic obstructive pulmonary disease, unspecified (principal)
CPT/HCPCS: 94060; 94726; 94729

== ENCOUNTER 2021-12-12 01:59 | Day surgery (SDC) | payer OTHER, SELFPAY ==
[2021-12-03 14:17] VITALS: BMI 22.0
--- NOTE | 2021-12-11 13:55 | PM.HPGS ---
History of Present Illness History of Present Illness Consent: Risks, benefits, and alternatives have been discussed and questions answered. Patient agrees to proceed with procedure. Chief complaint: dysphagia Narrative: Selena Chen is a 61 year old female with dysphagia. For several months she has had difficulty swallowing. Pills in particular seems to get caught in the back of her throat. She has to take them later that time. At times it feels as though they are dissolving before they go down. She also has difficulty with bread. She cannot expectorate things that are stuck but points to her neck as the area where things are caught. She is chronically on famotidine for acid reflux it seems to help most the time. Review of Systems Review of Systems: All systems reviewed & are unremarkable except as noted in HPI and below PMFSH Past Medical History Medical History Anxiety Arthritis Bronchitis Chronic constipation Chronic obstructive pulmonary disease Gastroesophageal reflux disease Hard of hearing Surgical History Surgical History H/O: hysterectomy History of cholecystectomy History of right oophorectomy Large right ovarian mass removed in June 2002. 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 Family History Family History Other Hypertension Social History Social History Social History: The patient lives in [place]. Smokes between 2 and 3 packs of cigarettes a day and has for nearly 50 years. Drinks perhaps 1 beer a week. Occasional marijuana use. She designates her friend, Emery Condon, as her surrogate decision maker. Code status: Full code. Smoking packs per day: 2 Smoking cigarettes per day: 40.0 Years smoked: 50 Smoking pack-years: 100.00 Smoking status: Heavy tobacco smoker Tobacco type: cigarettes Alcohol intake: never Substance use: current Substance use type: marijuana Other substance usage details: daily use Living arrangements: with friend(s) Additional living arrangements comments: Patient is Gender identity (if verbalized by the patient): Female Sexual Orientation (if Verbalized by the Patient): Straight or Heterosexual Spiritual care concerns: No Meds Home Medications and Allergies Home Medications Medication Instructions Recorded Confirmed Type baclofen 10 mg tablet 10 mg PO TID 02/18/21 12/03/21 History acetaminophen 500 mg tablet See Rx Instructions .Route .COMPLEX 04/28/21 12/03/21 History calcium carbonate 600 mg-vitamin See Rx Instructions .Route .COMPLEX 04/28/21 12/03/21 History D3 12.5 mcg (500 unit) capsule (Calcium 600 with Vitamin D3) nicotine 21 mg/24 hr daily 1 patch transdermal DAILY #28 ea 06/02/21 12/03/21 Rx transdermal patch gabapentin 600 mg tablet 900 mg PO TID #90 tabs 06/18/21 12/03/21 Rx alprazolam 0.5 mg tablet (Xanax) 0.5 mg PO BID PRN anxiety #30 tabs 07/16/21 12/03/21 Rx albuterol sulfate 2.5 mg/3 mL See Rx Instructions .Route 08/20/21 12/03/21 Rx (0.083 %) solution for nebulization .COMPLEX #180 mL atorvastatin 20 mg tablet 20 mg PO DAILY #90 tabs 08/29/21 12/03/21 Rx meloxicam 7.5 mg tablet (Mobic) 7.5 mg PO BID #60 tabs 09/17/21 12/03/21 Rx alendronate 70 mg tablet (Fosamax) 70 mg PO WEEKLY #12 tabs 11/07/21 12/03/21 Rx sertraline 50 mg tablet 50 mg PO DAILY #90 tabs 11/19/21 12/03/21 Rx triamcinolone acetonide 0.1 % See Rx Instructions .Route 11/21/21 12/03/21 Rx topical ointment .COMPLEX #80 grams tiotropium bromide 18 mcg capsule 1 cap inhalation DAILY #30 12/02/21 12/03/21 Rx with inhalation device (Spiriva inhalations with HandiHaler) dicyclomine 10 mg capsule See Rx Instructions .Route 12/05/21 Rx .COMPLEX #90 caps famotidine 20 mg tabl
[2021-12-12 06:55] VITALS: BP 114/86; PULSE 74; RESP 16; TEMP 35.9; O2SAT 98; BMI 22.2
[2021-12-12] MEDS: LACTATED RINGERS 1,000 ML 150 ML IV CONT (07:03)
--- NOTE | 2021-12-12 07:54 | WPDANESEPPF ---
Anes - Initial Pre Proc Eval Procedure: Operation Date: 12/12/21 08:00 Proposed Procedures p Esophagogastroduodenoscopy - Cortes Randolph MD Date/Time: 12/12/21 07:54 Surgeon: Cortes Randolph MD Pre Op Diagnosis: dysphagia Patient Data Age: 61 Gender: F Height: 1.57 m Weight: 55.1 kg Last Vital Signs Temp 96.7 F L 12/12/21 06:55 Pulse 74 12/12/21 06:55 Resp 16 12/12/21 06:55 BP 114/86 12/12/21 06:55 Pulse Ox 98 12/12/21 06:55 O2 Del Method Room Air 12/12/21 06:55 Allergies Allergy/AdvReac Type Severity Reaction Status Date / Time cyclobenzaprine Allergy Severe Rash Verified 12/12/21 06:53 [From Flexeril] Home Medications Medication Instructions Recorded Confirmed Type baclofen 10 mg tablet 10 mg PO TID 02/18/21 12/03/21 History acetaminophen 500 mg tablet See Rx Instructions .Route .COMPLEX 04/28/21 12/03/21 History calcium carbonate 600 mg-vitamin See Rx Instructions .Route .COMPLEX 04/28/21 12/03/21 History D3 12.5 mcg (500 unit) capsule (Calcium 600 with Vitamin D3) nicotine 21 mg/24 hr daily 1 patch transdermal DAILY #28 ea 06/02/21 12/03/21 Rx transdermal patch gabapentin 600 mg tablet 900 mg PO TID #90 tabs 06/18/21 12/03/21 Rx alprazolam 0.5 mg tablet (Xanax) 0.5 mg PO BID PRN anxiety #30 tabs 07/16/21 12/03/21 Rx albuterol sulfate 2.5 mg/3 mL See Rx Instructions .Route 08/20/21 12/03/21 Rx (0.083 %) solution for nebulization .COMPLEX #180 mL atorvastatin 20 mg tablet 20 mg PO DAILY #90 tabs 08/29/21 12/03/21 Rx meloxicam 7.5 mg tablet (Mobic) 7.5 mg PO BID #60 tabs 09/17/21 12/03/21 Rx alendronate 70 mg tablet (Fosamax) 70 mg PO WEEKLY #12 tabs 11/07/21 12/03/21 Rx sertraline 50 mg tablet 50 mg PO DAILY #90 tabs 11/19/21 12/03/21 Rx triamcinolone acetonide 0.1 % See Rx Instructions .Route 11/21/21 12/03/21 Rx topical ointment .COMPLEX #80 grams tiotropium bromide 18 mcg capsule 1 cap inhalation DAILY #30 12/02/21 12/03/21 Rx with inhalation device (Spiriva inhalations with HandiHaler) dicyclomine 10 mg capsule See Rx Instructions .Route 12/05/21 Rx .COMPLEX #90 caps famotidine 20 mg tablet See Rx Instructions .Route 12/05/21 Rx .COMPLEX #60 tabs trazodone 100 mg tablet 100 mg PO QHS PRN sleep #30 tabs 12/08/21 Rx Patient hx anesthesia problems: none Family hx anesthesia problems: none Results Review: All pre-operative results and documents have been reviewed as part of the pre-operative evaluation. [facility] Past Medical History Medical History Anxiety Arthritis Bronchitis Chronic constipation Chronic obstructive pulmonary disease Gastroesophageal reflux disease Hard of hearing Surgical History Surgical History H/O: hysterectomy History of cholecystectomy History of right oophorectomy Large right ovarian mass removed in June 2002. 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 Family History Family History Other Hypertension Social History Social History Social History: The patient lives in [place]. Smokes between 2 and 3 packs of cigarettes a day and has for nearly 50 years. Drinks perhaps 1 beer a week. Occasional marijuana use. She designates her friend, Emery Condon, as her surrogate decision maker. Code status: Full code. Smoking packs per day: 2 Smoking cigarettes per day: 40.0 Years smoked: 50 Smoking pack-years: 100.00 Smoking status: Heavy tobacco smoker Tobacco type: cigarettes Alcohol intake: never Substance use: current Substance use type: marijuana Other substance usage details: daily use Living arrangements: with friend(s) Additional living arrangements comments: Patient is Gender identity (if verbalized by the patient): Fema
[2021-12-12 08:12] VITALS: BP 141/76; PULSE 81; RESP 24; O2SAT 100
[2021-12-12 08:22] VITALS: BP 140/77; PULSE 70; RESP 19; O2SAT 97
[2021-12-12 08:32] VITALS: BP 141/69; PULSE 71; RESP 19; O2SAT 98
== END 2021-12-12 08:39 | disposition home or self-care (01) ==
PROVIDERS: PCP Emergency Medicine; Visit Provider Internal Medicine Gastroenterology
PROC: 0DJ08ZZ Inspection of Upper Intestinal Tract, Via Natural or Artificial Opening Endoscopic (ICD-10-PCS; CPT 43235; principal; 2021-12-12 08:00)
DX: R13.19 Other dysphagia (principal); K22.2 Esophageal obstruction; Z79.51 Long term (current) use of inhaled steroids; F41.9 Anxiety disorder, unspecified; K21.9 Gastro-esophageal reflux disease without esophagitis; M19.90 Unspecified osteoarthritis, unspecified site; J44.9 Chronic obstructive pulmonary disease, unspecified; F12.90 Cannabis use, unspecified, uncomplicated; F17.210 Nicotine dependence, cigarettes, uncomplicated
CPT/HCPCS: 43239; 43249; 88305; C1726; J2001; J2704; J7120

== ENCOUNTER 2022-01-12 12:49 | Outpatient (CLI) | payer OTHER, SELFPAY ==
--- NOTE | ~2022-01-12 | CT_ITS ---
EXAMINATION:CT chest high resolution wo mi DATE: 01/12/2022 13:54 INDICATION: Interstitial lung disease. TECHNIQUE: Computed tomography (CT) of the chest was performed without intravenous contrast. Automate d exposure control and iterative reconstruction technique were employed. The dose-length product (DLP ) was 111.16 mGy-cm. COMPARISON: Chest CT 03/08/2021 FINDINGS: There is moderate emphysema. There is mild scarring at the lung apices. There is widespread septal thickening in the lungs with a peripheral predominance. There are areas of honeycombing in th e lungs bilaterally. A calcified right lung nodule and calcified paraesophageal lymph node are consis tent with old granulomatous disease. The prior exam demonstrated diffuse acute lung disease which has since resolved. No pleural effusion. The heart size is normal. There are coronary artery calcificati ons. There are calcifications of aortic valve. No pericardial effusion. Again seen are multiple chron ic compression fractures in thoracic spine. There is mild thoracic spondylosis. IMPRESSION: 1. Diffuse lung disease, likely a combination of moderate emphysema and chronic interstitial lung dis ease in a pattern of usual interstitial pneumonia (UIP). Reviewed, dictated and finalized at location A. IMPRESSION: 1. Diffuse lung disease, likely a combination of moderate emphysema and chronic interstitial lung disease in a pattern of usual interstitial pneumonia (UIP).
[2022-01-12 13:15] VITALS: PULSE 94; O2SAT 90
[2022-01-12 13:17] VITALS: PULSE 95; O2SAT 87
[2022-01-12 13:18] VITALS: PULSE 96; O2SAT 89
[2022-01-12 13:20] VITALS: PULSE 95; O2SAT 90
--- NOTE | 2022-01-12 13:29 | HOMEO2EVAL ---
Evaluation was performed at [facility] Home Oxygen Evaluation RC: Home Oxygen (O2) Evaluation Start: 01/12/22 13:26 Freq: Status: Active Protocol: RPE Activity Type Activity Date Activity User E-sign Co-sign Detail Recorded Client Recorded Date Recorded By Document 01/12/22 13:15 KRM [email or web address] 01/12/22 13:29 KRM Document 01/12/22 13:17 [email or web address] [id number] 01/12/22 13:29 KRM Document 01/12/22 13:18 KRM [email or web address] 01/12/22 13:29 KRM Document 01/12/22 13:20 [email or web address] [email or web address] 01/12/22 13:29 KRM 01/12/22 01/12/22 01/12/22 13:15 13:17 13:18 Home O2 Evaluation Test Phase Resting Exercise Exercise Oxygen Delivery Room Air Room Air Nasal Cannula Oxygen Flow Rate (L/min) 1 Pulse Oximetry (90-100 %) 90 87 L 89 L Pulse Rate (60-100 beats/min) 94 95 96 Activity Tolerance Fair Fair Ambulation Distance (feet) Ambulation Distance (meters) Home Oxygen Evaluation Comments Treatment Charges 01/12/22 13:20 Home O2 Evaluation Test Phase Exercise Oxygen Delivery Nasal Cannula Oxygen Flow Rate (L/min) 2 Pulse Oximetry (90-100 %) 90 Pulse Rate (60-100 beats/min) 95 Activity Tolerance Fair Ambulation Distance (feet) 200 Ambulation Distance (meters) 60.95 Home Oxygen Evaluation Comments 2 LPM O2 WITH ACTIVITY NEEDED . Treatment Charges O2 Evaluation - Outpatient
== END 2022-01-12 12:50 | disposition home or self-care (01) ==
PROVIDERS: PCP Emergency Medicine; Visit Provider Internal Medicine Pulmonary Disease
DX: J44.9 Chronic obstructive pulmonary disease, unspecified (principal); J84.9 Interstitial pulmonary disease, unspecified
CPT/HCPCS: 71250; 94618

== ENCOUNTER 2022-01-27 14:42 | Outpatient (CLI) | payer OTHER, SELFPAY ==
[2022-02-02 17:08] LABS: ANA Cascade Screen Negative (Negative)
[2022-02-03 10:22] LABS: ANCA Screen Negative (Negative)
== END 2022-01-27 14:43 | disposition home or self-care (01) ==
LOC: ANHLAB 14:43
PROVIDERS: PCP Emergency Medicine; Visit Provider Internal Medicine Pulmonary Disease
DX: J84.9 Interstitial pulmonary disease, unspecified (principal); J98.4 Other disorders of lung; J44.9 Chronic obstructive pulmonary disease, unspecified
CPT/HCPCS: 36415; 82085; 82104; 86036; 86038; 86331; 86606; 86609

== ENCOUNTER 2022-02-04 09:38 | Outpatient (CLI) | payer OTHER, SELFPAY ==
--- NOTE | ~2022-02-04 | XR_ITS ---
MODIFIED ESOPHAGRAM HISTORY: Dysphagia. TECHNIQUE: Modified barium esophagram was performed on 02/04/22. I administered fluoroscopy and perform ed the exam with speech pathologist. Patient was seated for lateral fluoroscopic imaging for ingesti on of thin liquids, pudding, solids and quantified amounts, followed by thin liquids in uncontrolled amounts. This was recorded on tape. A single fluoroscopic spot image was also recorded. The DAP for t his procedure was 1.38 Gycm2. The amount of fluoroscopy time used during this procedure was 2.2 minut es. FINDINGS: Oral stage: Adequate function. Pharyngeal stage: Adequate function. Cervical/esophageal stage: Adequate function. IMPRESSION: Patient tolerated regular consistency oral feedings in the upright position. Please kyle elate with speech pathologist findings and specific feeding recommendations. Reviewed, dictated and finalized at location A. IMPRESSION: Patient tolerated regular consistency oral feedings in the upright position. Please correlate with speech pathologist findings and specific feedi ng recommendations.
--- NOTE | 2022-02-05 12:43 | STOPEVAL ---
MODIFIED BARIUM SWALLOW STUDY Thank you for referring Selena Chen to [facility].? I agree with and certify that the following plan of care is medically necessary. Referring Physician Date Attending Provider: Cortes Randolph MD Therapy Assessment Status Assessment Status Assessment Status Evaluation Outpatient Past Medical History Past Medical History No Past Medical/Surgical History Patient/Family Denies Significant Past Medical/ Surgical History Pain Assessment Timing of Pain Assessment Timing of Pain Assessment Assessment Self Report Self Report Pain Level 0 Pain Score Pain Score 0: Self Report Modified Barium Swallow Evaluation Consistency Solid Consistency 5 mL Method of Presentation Spoon Oral Preparatory Symptoms Within Functional Limits Oral Phase Symptoms Within Functional Limits Pharyngeal Phase Symptoms Within Functional Limits Severity of Vallecular Residue None - 0% No Residue Severity of Pyriform Sinus Residue None - 0% No Residue 8 Point Laryngeal Penetration-Aspiration Material Does Not Enter Airway Scale Cervical/Esophageal Symptoms Within Functional Limits Mixed Consistency 5 mL Method of Presentation Spoon Oral Preparatory Symptoms Within Functional Limits Oral Phase Symptoms Within Functional Limits Pharyngeal Phase Symptoms Within Functional Limits Severity of Vallecular Residue None - 0% No Residue Severity of Pyriform Sinus Residue None - 0% No Residue 8 Point Laryngeal Penetration-Aspiration Material Does Not Enter Airway Scale Cervical/Esophageal Symptoms Within Functional Limits Pureed Consistency 5 mL Method of Presentation Spoon Oral Preparatory Symptoms Within Functional Limits Oral Phase Symptoms Within Functional Limits Pharyngeal Phase Symptoms Within Functional Limits Severity of Vallecular Residue None - 0% No Residue Severity of Pyriform Sinus Residue None - 0% No Residue 8 Point Laryngeal Penetration-Aspiration Material Does Not Enter Airway Scale Cervical/Esophageal Symptoms Within Functional Limits Pureed Consistency 3 mL Method of Presentation Spoon Oral Preparatory Symptoms Within Functional Limits Oral Phase Symptoms Within Functional Limits Pharyngeal Phase Symptoms Within Functional Limits Severity of Vallecular Residue None - 0% No Residue Severity of Pyriform Sinus Residue None - 0% No Residue 8 Point Laryngeal Penetration-Aspiration Material Does Not Enter Airway Scale Cervical/Esophageal Symptoms Within Functional Limits Thin Uncontrolled 1 Method of Presentation Straw Oral Preparatory Symptoms Within Functional Limits Oral Phase Symptoms Within Functional Limits
== END 2022-02-04 09:39 | disposition home or self-care (01) ==
PROVIDERS: PCP Emergency Medicine; Visit Provider Internal Medicine Gastroenterology
DX: R13.10 Dysphagia, unspecified (principal)
CPT/HCPCS: 92611

== ENCOUNTER 2022-03-12 03:42 | Emergency (ER) | payer OTHER, SELFPAY ==
[2022-03-12] VITALS (7 sets, daily range): BP systolic 138–160; BP diastolic 74–112; PULSE 66–76; RESP 16–20; TEMP 36.9; O2SAT 95–99
--- NOTE | ~2022-03-12 | XR_ITS ---
EXAMINATION: XR chest 2V DATE: 03/12/2022 04:21 INDICATION: Left chest pain. TECHNIQUE: Frontal and lateral views of the chest were obtained. COMPARISON: Chest single view 09/11/2021, chest CT 01/12/2022 FINDINGS: There are lucencies in the lungs. There is a chronic diffuse interstitial pattern in the irving ngs. No pleural effusion or pneumothorax. The heart size is normal. There are multiple chronic verteb ral body fractures. IMPRESSION: 1. Stable diffuse lung disease, likely combination of emphysema and chronic interstitial lung disease . Reviewed, dictated and finalized at location A. IMPRESSION: 1. Stable diffuse lung disease, likely combination of emphysema and chronic int erstitial lung disease.
--- NOTE | 2022-03-12 03:51 | ECG_ITS ---
Measurements Intervals [place] Rate: 70 P: 54 MN: 167 QRS: 39 QRSD: 84 T: 63 QT: 380 QTc: 411 Interpretive Statements SINUS RHYTHM BASELINE ARTIFACT- I, II, III, AVR, AVL, V3-V6 NORMAL ECG COMPARED TO ECG 09/11/2021 18:08:26 NO SIGNIFICANT CHANGES Electronically Signed On 03-12-2022 8:09:15 CDT by Abel Null D.O.
--- NOTE | 2022-03-12 03:58 | ED.CHESTPAIN ---
HPI - Chest Pain General Chief Complaint: Chest Pain Stated Complaint: CP, BACK PAIN Time Seen by Provider: 03/12/22 03:54 History of Present Illness HPI narrative: This is a 61-year-old female with past medical history of arthritis and chronic back pain, who presents emergency department complaining of left chest wall pain for the past 4 days and back pain. Patient describes the pain as sharp, 6 of 10, nonradiating, aggravated by direct palpation, not aggravated by physical or emotional exertion and not associated with difficulty breathing, nausea or vomiting. She also complains of chronic back pain, rated 8 out of 10, not associated with lower extremity weakness, loss of sensation in the groin, or bowel/bladder incontinence. She states she takes [id number] Tylenol with little improvement. Related Data Home Medications Medication Instructions Recorded Confirmed baclofen 10 mg tablet 10 mg PO TID 02/18/21 01/27/22 acetaminophen 500 mg tablet See Rx Instructions .Route .COMPLEX 04/28/21 01/27/22 calcium carbonate 600 mg-vitamin See Rx Instructions .Route .COMPLEX 04/28/21 01/27/22 D3 12.5 mcg (500 unit) capsule (Calcium 600 with Vitamin D3) Allergies Allergy/AdvReac Type Severity Reaction Status Date / Time cyclobenzaprine Allergy Severe Rash Verified 03/04/22 13:44 [From Flexeril] Review of Systems Review of Systems: CONSTITUTIONAL: Denies fever, chills, or sweats. ENT: Denies rhinorrhea, congestion, sore throat, or otalgia. CARDIOVASCULAR: Chest wall pain denies palpitations, or edema. RESPIRATORY: Denies cough or dyspnea. GASTROINTESTINAL: Denies abdominal pain, nausea, vomiting, or diarrhea. GENITOURINARY: Denies dysuria or hematuria. SKIN: Denies rash or itching. MUSCULOSKELETAL: Chronic low back pain denies joint pain, or myalgia. NEUROLOGIC: Denies headache, numbness, dizziness, or weakness. PSYCHIATRIC: Denies anxiety or depression. [facility] Past Medical History Medical History (Updated 03/12/22 @ 04:04 by Stan Mccloud MD) CHIOMA positive CHIOMA positive Anxiety Arthritis Bronchitis Chronic constipation Chronic obstructive pulmonary disease Gastroesophageal reflux disease Hard of hearing Inflammatory arthritis Surgical History Surgical History H/O: hysterectomy History of cholecystectomy History of right oophorectomy Large right ovarian mass removed in June 2002. 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 Family History Family History Other Hypertension Social History Social History Social History: The patient lives in [place]. Smokes between 2 and 3 packs of cigarettes a day and has for nearly 50 years. Drinks perhaps 1 beer a week. Occasional marijuana use. She designates her friend, Emery Condon, as her surrogate decision maker. Code status: Full code. Smoking packs per day: 2 Smoking cigarettes per day: 40.0 Years smoked: 50 Smoking pack-years: 100.00 Smoking status: Heavy tobacco smoker Tobacco type: cigarettes Alcohol intake: never Substance use: current Substance use type: marijuana Other substance usage details: daily use Additional living arrangements comments: Patient is Gender identity (if verbalized by the patient): Female Sexual Orientation (if Verbalized by the Patient): Straight or Heterosexual Spiritual care concerns: No Exam Narrative: GENERAL: Well-appearing, well-nourished, appears anxious HEAD: Normocephalic, atraumatic. EYES: PERRLA and EOMI. ENT: Nares clear, no rhinorrhea or epistaxis. Mucous membranes moist. Oropharynx without tonsillar hypertrophy exudate or other lesions. NECK: Supple. No adenopathy or masses. No carotid bruits or JVD CHEST: Clear to auscultation. No respiratory distress. No wheezes rales or rhonchi
[2022-03-12 03:59] LABS: Hematocrit 38.1 % (37.0-47.0); Hemoglobin 12.5 g/dL (12.0-15.0); Mean Corpuscular HGB Conc 32.8 g/dl (32-36); Mean Corpuscular Hemoglobin 37.9 pg (26-34); Mean Corpuscular Volume 115.5 fl (80-100); Mean Platelet Volume 8.8 fl (7.4-10.4); Platelet Count Result 407 k/mm3 (150-375); Red Cell Distribution Width 13.2 % (11.5-14.5); White Blood Count 11.2 K/mm3 (4.5-10.0)
--- NOTE | 2022-03-12 04:05 | PC.NURSE ---
Called pharmacy to get both types of Lidocaine for patient
[2022-03-12 04:11] LABS: Alanine Aminotransferase 23 U/L (6-35); Albumin Level 4.4 g/dL (3.5-5.1); Alkaline Phosphatase 133 U/L (38-126); Anion Gap 11 mmol/L (8-16); Aspartate Amino Transferase 26 U/L (14-36); Bilirubin,Total 0.2 mg/dL (0.2-1.3); Blood Urea Nitrogen 23 mg/dL (7-17); Calcium 9.9 mg/dL (8.4-10.2); Carbon Dioxide 23 mmol/L (22-30); Chloride 107 mmol/L (98-107); Estimated CRCL calculation 44 ml/min; Estimated Glomerular Filt Rate > 60; Glucose 88 mg/dL (65-110); Lipase 182 U/L (23-300); Potassium 3.8 mmol/L (3.4-5.0); Sodium 141 mmol/L (137-145)
[2022-03-12 04:19] LABS: INR 0.9; Partial Thromboplastin Time 20.3 SECONDS (22.3-36.8); Prothrombin Time 11.9 Seconds (11.1-14.7)
[2022-03-12 04:23] LABS: Troponin I < 0.012 ng/mL (0.000-0.034)
[2022-03-12] MEDS: LIDOCAINE 1% BUFFERED WITH 8.4% SODIUM BICARB 1 ML SYRINGE INFILTRATE (04:31)
[2022-03-12] MEDS: LIDOCAINE 5% PATCH 1 PATCH TRANSDERM (04:31)
[2022-03-12 05:06] LABS: Band Neutrophils Percent 4 % (0-6); Lymphocytes Absolute Manual 2.46 K/mm3 (1.1-4.5); Lymphocytes Percent Manual 22 % (18-44); Monocytes Absolute Manual 0.11 K/mm3 (0.1-0.90); Monocytes Percent Manual 1 % (3-9); Neutrophils Absolute Manual 8.51 K/mm3 (1.7-7.2); Neutrophils Percent Manual 72 % (46-73); Total Cells Counted 100
[2022-03-12 05:07] LABS: Basophils Absolute Manual 0.11 K/mm3 (0.0-0.1); Basophils Percent Manual 1 % (0-1); Platelet Estimate Adequate (Adequate); Polychromasia 1+ (NORMAL)
[2022-03-12 05:08] LABS: Anisocytosis 1+ (NORMAL); Macrocytosis 2+ (NORMAL)
== END 2022-03-12 05:13 | disposition home or self-care (01) ==
PROVIDERS: Emergency Provider Preventive Medicine Aerospace Medicine; PCP Emergency Medicine
DX: M54.50 Low back pain, unspecified (principal); R07.89 Other chest pain; G89.29 Other chronic pain; J44.9 Chronic obstructive pulmonary disease, unspecified; M13.80 Other specified arthritis, unspecified site; K21.9 Gastro-esophageal reflux disease without esophagitis; F41.9 Anxiety disorder, unspecified; F17.210 Nicotine dependence, cigarettes, uncomplicated; F12.90 Cannabis use, unspecified, uncomplicated; Z79.51 Long term (current) use of inhaled steroids
CPT/HCPCS: 20552; 36415; 71046; 80053; 83690; 84484; 85025; 85610; 85730; 93005; 99284; A9270

== ENCOUNTER 2022-07-09 10:29 | Outpatient (CLI) | payer OTHER, SELFPAY ==
--- NOTE | ~2022-07-09 | MR_ITS ---
MRI of the thoracic spine Clinical History: Compression fracture Technique: Axial T2-weighted and gradient images, and sagittal T1-weighted, T2-weighted, and STIR lo ges were acquired. Findings: There are mild compression fracture deformities of T7, T8, T9, and T10, without significant marrow edema. No significant retropulsion identified. No subluxation evident. No other fracture iden tified. No disc bulge or herniation evident in the thoracic spine. No spinal canal stenosis or cord compressi on identified. No epidural mass or collection seen. Paravertebral soft tissues are unremarkable. Impression: Mild chronic compression fracture findings of T7, T8, T9, and T10. These are stable since prior CT da edu 01/12/2022. No spinal canal stenosis or cord compression. Reviewed, dictated and finalized at [facility]. EM ADMIN Impression: Mild chronic compression fracture findings of T7, T8, T9, and T10. These are st able since prior CT dated 01/12/2022. No spinal canal stenosis or cord compression.
== END 2022-07-09 10:30 | disposition home or self-care (01) ==
PROVIDERS: PCP Emergency Medicine; Visit Provider Nurse Practitioner Family
DX: S22.060D Wedge compression fracture of T7-T8 vertebra, subsequent encounter for fracture with routine healing (principal); S22.070D Wedge compression fracture of T9-T10 vertebra, subsequent encounter for fracture with routine healing; X58.XXXD Exposure to other specified factors, subsequent encounter
CPT/HCPCS: 72146

== ENCOUNTER 2022-09-16 21:31 | Emergency (ER) | payer OTHER, SELFPAY ==
--- NOTE | ~2022-09-16 | XR_ITS ---
Portable chest x-ray Comparison: 03/12/2022 Clinical History: Dyspnea Findings: There is interstitial prominence in the lung bases and peripheral right upper lobe. No ple ural effusion or pneumothorax. Cardiomediastinal silhouette is stable. Bones and soft tissues are un remarkable. Impression: Probable chronic interstitial disease, most prominent at the lung bases and peripheral right upper lo be. Reviewed, dictated and finalized at location . Impression: Probable chronic interstitial disease, most prominent at the lung bases and per ipheral right upper lobe.
--- NOTE | ~2022-09-16 | XR_ITS ---
Right foot Technique: AP, oblique, and lateral views were obtained. Clinical History: Swelling Findings: No acute fracture or dislocation is seen. Osseous alignment is anatomic. Joint spaces are p reserved without erosive or degenerative change. Soft tissues are unremarkable. Impression: Unremarkable right foot radiographs. Reviewed, dictated and finalized at location . Impression: Unremarkable right foot radiographs.
[2022-09-16 21:31] VITALS: BP 119/84; PULSE 77; RESP 16; TEMP 36.7; O2SAT 100
[2022-09-16 21:35] VITALS: BP 119/84; PULSE 84; RESP 13; O2SAT 99
[2022-09-16 22:45] VITALS: BP 106/70; PULSE 78; RESP 14; O2SAT 93
[2022-09-16 23:30] VITALS: BP 101/62; PULSE 83; RESP 17; O2SAT 90
[2022-09-17 00:49] LABS: Basophils Absolute Auto 0.1 K/mm3 (0.0-0.1); Basophils Percent Auto 0.7 % (0.2-1.2); Hematocrit 32.6 % (37.0-47.0); Hemoglobin 10.8 g/dL (12.0-15.0); Immature Granulocyte Absolute 0.12 K/mm3 (0.00-0.031); Immature Granulocyte Percent A 1.6 % (0-0.5); Lymphocytes Absolute Auto 1.33 K/mm3 (0.9-3.2); Lymphocytes Percent Auto 17.7 % (18.3-44.2); Mean Corpuscular HGB Conc 33.1 g/dl (32-36); Mean Corpuscular Hemoglobin 37.4 pg (26-34); Mean Corpuscular Volume 112.8 fl (80-100); Mean Platelet Volume 8.5 fl (7.4-10.4); Monocytes Absolute Auto 0.5 K/mm3 (0.1-0.6); Neutrophils Absolute Auto 5.6 K/mm3 (1.3-6.7); Platelet Count Result 375 k/mm3 (150-375); Red Blood Count 2.89 M/mm3 (4.2-5.4); Red Cell Distribution Width 12.9 % (11.5-14.5); White Blood Count 7.5 K/mm3 (4.5-10.0)
[2022-09-17 00:58] LABS: Lactic Acid Reflex 0.9 mmol/L (0.7-2.0); Magnesium 1.5 mg/dL (1.6-2.3)
[2022-09-17 01:00] VITALS: BP 166/90; PULSE 88; RESP 19; O2SAT 97
[2022-09-17 01:02] LABS: Glucose Point of Care 86 mg/dl (65-105)
[2022-09-17 01:03] LABS: Partial Thromboplastin Time 28.3 SECONDS (22.3-36.8)
[2022-09-17 01:06] LABS: D Dimer 0.49 ug/mL (<0.48)
[2022-09-17 01:08] LABS: NT Pro B Type Natriuretic Pept 698 pg/mL (19.9-100)
[2022-09-17 01:11] LABS: Troponin I < 0.012 ng/mL (0.000-0.034)
[2022-09-17] MEDS: SODIUM CHLORIDE 0.9% IV 1,000 ML 999 ML IV CONT (01:11)
[2022-09-17 01:23] LABS: Appearance Urine Clear (Clear); Bilirubin Urine Negative (Negative); Blood Urine Negative (Negative); Color Urine Yellow (Yellow); Glucose Urine UA Negative (Negative); Ketones Urine Negative (Negative); Leukocyte Esterase Ur Negative LEU/UL (Negative); Nitrate Urine Negative (Negative); Protein Urine Negative (Negative); Specific Grav Ur 1.015 (1.001-1.035); Urobilinogen Urine 0.2 mg/dL (<2.0); pH Urine 5.5 (5.0-9.0)
[2022-09-17 01:24] LABS: Alanine Aminotransferase 28 U/L (6-35); Albumin Level 3.3 g/dL (3.5-5.1); Alkaline Phosphatase 109 U/L (38-126); Anion Gap 4 mmol/L (8-16); Aspartate Amino Transferase 55 U/L (14-36); Bilirubin,Total 0.4 mg/dL (0.2-1.3); Blood Urea Nitrogen 6 mg/dL (7-17); Calcium 9.3 mg/dL (8.4-10.2); Carbon Dioxide 27 mmol/L (22-30); Chloride 104 mmol/L (98-107); Estimated Glomerular Filt Rate > 60; Glucose 91 mg/dL (65-110); Potassium 3.1 mmol/L (3.4-5.0); Sodium 135 mmol/L (137-145)
[2022-09-17 01:26] LABS: Influenza A QL RT-PCR Negative (Negative); Influenza B QL RT-PCR Negative (Negative); RSV RNA, RT-PCR Negative (Negative); SARS-CoV-2 RNA PCR Negative
[2022-09-17 01:27] LABS: Add Urine Microscopic? NO
--- NOTE | 2022-09-17 01:29 | ED.GENADULT ---
HPI - General Adult General Chief complaint: Fall Stated complaint: RLE PAIN, BILAT FEET PAIN Time Seen by Provider: 09/16/22 22:53 History of Present Illness HPI narrative: This is a 62-year-old female presenting ED with with lower extremity pain. Patient had a fall 2 weeks ago. Since then she has had some scrapes on her legs that become infected. She has seen her primary care physician Dr. Cuenca and was placed on antibiotics clindamycin which she has take for about 2 days. She is in here today as she is having some swelling of her foot and she would like an x-ray. Patient denies chest pain, shortness of breath, belly pain, urinary symptoms or diarrhea/constipation. She denies fever chills. She has been taking Tylenol for pain control. Related Data Home Medications Medication Instructions Recorded Confirmed baclofen 10 mg tablet 10 mg PO TID 02/18/21 06/15/22 acetaminophen 500 mg tablet See Rx Instructions .Route .COMPLEX 04/28/21 06/15/22 calcium carbonate 600 mg-vitamin See Rx Instructions .Route .COMPLEX 04/28/21 06/15/22 D3 12.5 mcg (500 unit) capsule (Calcium 600 with Vitamin D3) escitalopram oxalate 10 mg tablet 30 mg PO 06/15/22 06/15/22 hydroxychloroquine 100 mg tablet 100 mg PO 06/15/22 06/15/22 Allergies Allergy/AdvReac Type Severity Reaction Status Date / Time cyclobenzaprine Allergy Severe Rash Verified 09/14/22 09:54 [From Flexeril] [facility] Past Medical History Medical History CHIOMA positive CHIOMA positive Anxiety Arthritis Bronchitis Chronic constipation Chronic obstructive pulmonary disease Dysphagia, oral phase Hard of hearing Inflammatory arthritis Surgical History Surgical History H/O: hysterectomy History of cholecystectomy History of right oophorectomy Large right ovarian mass removed in June 2002. 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 Family History Family History Other Hypertension Social History Social History Social History: The patient lives in [place]. Smokes between 2 and 3 packs of cigarettes a day and has for nearly 50 years. Drinks perhaps 1 beer a week. Occasional marijuana use. She designates her friend, Emery Condon, as her surrogate decision maker. Code status: Full code. Smoking packs per day: 2 Smoking cigarettes per day: 40.0 Years smoked: 50 Smoking pack-years: 100.00 Smoking status: Heavy tobacco smoker Tobacco type: cigarettes Alcohol intake: never Substance use: current Substance use type: marijuana Other substance usage details: daily use Lack of Transportation: No Lack of Food: Never True Current Housing: I Have Housing Concerned About Future Housing: No Difficulty Paying Gas/Electric Bills: No Difficulty Paying for Meds: No Currently Unemployed: No Education: High School Diploma/GED Difficulty w/ Childcare or Family Care: No Living arrangements: with friend(s) Additional living arrangements comments: Patient is Occupation/Education: unemployed Gender identity (if verbalized by the patient): Female Sexual Orientation (if Verbalized by the Patient): Straight or Heterosexual Spiritual care concerns: No Exam Narrative: APPEARANCE: No apparent distress. Head: atraumatic. EYES: EOMI, NOSE: Atraumatic NECK: Trachea midline RESPIRATORY: No increased rate of breathing , crackles in the lungs bases bilaterally, 100% on room air CARDIOVASCULAR: RRR, +2 edema of the right lower extremity, no erythema or induration ABDOMINAL: Non-distended MUSCULOSKELETAl: No obvious deformities NEURO: Alert. Moving 4/4 extremities SKIN:: Multiple bruises over the patient's arms and legs. On her right chou she has several healing skin tears with mildsu
[2022-09-17 01:45] VITALS: PULSE 81; RESP 18; O2SAT 94
[2022-09-17] MEDS: POTASSIUM CHLORIDE 20 MEQ TABLET 40 MEQ PO (01:57)
[2022-09-17] MEDS: MAGNESIUM SULF 2 GM/WATER 50ML 2 GM/50 ML BAG IVPB (01:59)
[2022-09-17 02:00] VITALS: BP 161/92; PULSE 84; RESP 17
[2022-09-17 02:01] VITALS: BP 161/98; PULSE 83; RESP 23; O2SAT 100
[2022-09-17] MEDS: ceFAZolin 2 GM/D5W 50 ML 2 GM/50 ML BAG IVPB (02:27)
[2022-09-17 02:46] VITALS: BP 161/119; PULSE 84; RESP 25
== END 2022-09-17 02:55 | disposition home or self-care (01) ==
PROVIDERS: Emergency Provider Emergency Medicine; PCP Emergency Medicine
DX: L08.9 Local infection of the skin and subcutaneous tissue, unspecified (principal); R60.0 Localized edema; E87.6 Hypokalemia; E83.42 Hypomagnesemia; J44.9 Chronic obstructive pulmonary disease, unspecified; Z20.822 Contact with and (suspected) exposure to COVID-19; M19.90 Unspecified osteoarthritis, unspecified site; K59.09 Other constipation; F41.9 Anxiety disorder, unspecified; Z90.710 Acquired absence of both cervix and uterus; Z90.721 Acquired absence of ovaries, unilateral; F17.210 Nicotine dependence, cigarettes, uncomplicated
CPT/HCPCS: 36415; 71045; 73630; 80053; 81003; 82948; 83605; 83735; 83880; 84484; 85025; 85380; 85610; 85730; 87637; 96361; 96365; 96368; 99284; A9270; J0690; J3475; J7030

== ENCOUNTER 2022-10-01 09:47 | Outpatient (RCR) | payer OTHER, SELFPAY ==
[2022-10-01 10:12] VITALS: BMI 22.1
== END 2022-12-22 07:37 | disposition home or self-care (01) ==
LOC: ANHWOC 09:47
PROVIDERS: PCP Emergency Medicine; Visit Provider Emergency Medicine
DX: S80.811D Abrasion, right lower leg, subsequent encounter (principal); S80.812D Abrasion, left lower leg, subsequent encounter
CPT/HCPCS: 99213; G0463